=== PATIENT | male | born 1950 | race Caucasian/White ===

== ENCOUNTER 2017-01-06 18:50 | Inpatient (IN) | payer MEDICARE, BC ==
[~2017-01-06] VITALS: Ht 177.8 cm; Wt 93.6 kg
[2017-01-06] VITALS (20 sets, daily range): BP systolic 132–271; BP diastolic 68–132; PULSE 85–132; RESP 20–42; TEMP 98.4–101.2; O2SAT 72–100
[~2017-01-06 18:50] MED LIST: AMLO10 PO; ASPI81TA11 PO; ATOR1TAB18 PO; CLON.3T TD; CLOP75TA PO; DILT60TA33 PO; EMPA1TAB PO; ENOX30P SQ; GABA100C4 PO; HYDR12.57 PO; HYDR50TA15 PO; IMDU30TA PO; LIPI80TA PO; LOTR10CA2 PO; METO-309 PO; METO100T9 PO; NYSTCRE29 TOPICAL; PLAV75TA29 PO; PREV30TA3 PO; QUET1TAB7 PO; SERT-129 PO
[2017-01-06] MEDS ORDERED: SODIUM CHLORIDE 0.9% FLUSH 5 ML FLUSH IVF PRN ×2 (19:00→20:45)
[2017-01-06] MEDS ORDERED: NITROGLYCERIN-DEXTROSE INJ 250 ML IV SCH (19:00)
[2017-01-06] MEDS ORDERED: ENALAPRILAT 2.5 MG/2 ML VIAL IV PUSH ONE (19:15)
[2017-01-06] MEDS ORDERED: FUROSEMIDE 100 MG/10 ML VIAL IV PUSH ONE (19:15)
[2017-01-06 19:21] LABS: AUTOMATED NEUTROPHIL # 12.2 TH/MM3 (1.8-7.7); BASOPHIL # 0.2 TH/MM3 (0-0.2); BASOPHIL % 0.9 % (0.0-2.0); EOSINOPHIL # 0.3 TH/MM3 (0-0.4); EOSINOPHIL % 1.2 % (0.0-4.0); HEMATOCRIT 47.5 % (39.0-51.0); LYMPH % 32.4 % (9.0-44.0); MEAN CELL VOLUME 87.3 FL (80.0-100.0); MEAN CORPUSCULAR HEMOGLOBIN 28.7 PG (27.0-34.0); MEAN CORPUSCULAR HGB CONC 32.9 % (32.0-36.0); MONO % 9.4 % (0.0-8.0); NEUT % 56.1 % (16.0-70.0); PLATELET COUNT 201 TH/MM3 (150-450); RED BLOOD COUNT 5.44 MIL/MM3 (4.50-5.90); RED CELL DISTRIBUTION WIDTH 15.3 % (11.6-17.2); WHITE BLOOD COUNT 21.7 TH/MM3 (4.0-11.0)
[2017-01-06 19:24] LABS: HEMO FLAGS AUTO DIFF
--- NOTE | 2017-01-06 19:25 | RADHPO ---
EXAM DATE/TIME: 01/06/2017 19:07 [place] COMPARISON: CHEST SINGLE AP, August 28, 2016, 8:55. INDICATIONS : Short of breath. MEDICAL HISTORY : Congestive heart failure. Hypertension SURGICAL HISTORY : Cardiac bypass. ENCOUNTER: Initial ACUITY: 3 days PAIN SCORE: 1/10 LOCATION: Bilateral chest FINDINGS: There is slight cardiomegaly and perivascular pulmonary edema. Focal consolidation is not seen. There is evidence for prior median sternotomy. CONCLUSION: Slight CHF. K. Juan J Ashby MD on January 06, 2017 at 19:23 Board Certified Radiologist. This report was verified electronically.
[2017-01-06 19:31] LABS: CHLORIDE 105 MEQ/L (98-107); POTASSIUM 3.5 MEQ/L (3.5-5.1); SODIUM (NA) 141 MEQ/L (136-145)
--- NOTE | 2017-01-06 19:31 | PD ---
HPI Chief Complaint: Respiratory Distress Time Seen by Provider: 19:05 Travel History International Travel<30 days: No Contact w/Intl Traveler<30days: No Traveled to known affect area: No History of Present Illness HPI The patient is a 67-year-old male that states he has a history of congestive heart failure 5 years ago who complains of some shortness of breath last night and then beginning this afternoon sudden onset of severe shortness of breath. He does have a history of hypertension and coronary artery disease. He is on multiple medications which he states he is taking correctly. He denies any chest discomfort. He denies any cough or fever. He does smoke about a pack a day. He is a Medicare a and B patient of Dr. Marquez. [facility] Past Medical History Diminished Hearing: No Social History Alcohol Use: No Tobacco Use: No (it is unknown whether this patient has a smoking history) Substance Use: No Allergies-Medications (Allergen,Severity, Reaction): Coded Allergies: No Known Allergies (Unverified , 01/06/17) Reported Meds & Prescriptions Reported Meds & Active Scripts Active Nystatin-Triamcinolone 100,000-0.1 Unit/Gm Cream 1 Applic TOPICAL Q8HR 10 Days Quetiapine (Quetiapine Fumarate) 25 Mg Tab 12.5 Mg PO BID 30 Days Lopressor (Metoprolol Tartrate) 50 Mg Tab 100 Mg PO Q12HR 30 Days Prevacid Solutab ODT (Lansoprazole) 30 Mg Tab 30 Mg PO DAILY 30 Days Imdur (Isosorbide Mononitrate) 30 Mg Tab 30 Mg PO DAILY@07 30 Days Hydralazine (Hydralazine HCl) 50 Mg Tab 100 Mg PO Q8HR 30 Days Lovenox Inj (Enoxaparin Sodium) 30 Mg/0.3 Ml Syr 30 Mg SQ Q24H 30 Days Cardizem (Diltiazem HCl) 60 Mg Tab 60 Mg PO QID 30 Days Plavix (Clopidogrel Bisulfate) 75 Mg Tab 75 Mg PO DAILY 30 Days [id number] 168 HR Patch (Clonidine) 0.3 Mg/24 Hr Patch 1 Patch TD Q7D 30 Days Lipitor (Atorvastatin Calcium) 80 Mg Tab 80 Mg PO DAILY 30 Days Aspirin EC (Aspirin) 81 Mg Tabdr 81 Mg PO DAILY 30 Days Norvasc (Amlodipine Besylate) 10 Mg Tab 10 Mg PO DAILY 30 Days Reported Clopidogrel (Clopidogrel Bisulfate) 75 Mg Tab 75 Mg PO DAILY Metoprolol Succinate ER 24 HR (Metoprolol Succinate) 100 Mg Tab 100 Mg PO DAILY Sertraline (Sertraline HCl) 100 Mg Tab 100 Mg PO DAILY Gabapentin 100 Mg Cap 100 Mg PO TID Atorvastatin (Atorvastatin Calcium) 80 Mg Tab 80 Mg PO DAILY Lotrel (Amlodipine-Benazepril) 10-40 Mg Cap 1 Cap PO DAILY Hydrochlorothiazide 12.5 Mg Cap 25 Mg PO DAILY Jardiance (Empagliflozin) 10 Mg Tab 10 Mg PO DAILY Review of Systems Except as stated in HPI: all other systems reviewed are Neg Physical Exam Narrative GENERAL: The patient is alert, obese, oriented 3 in moderate to severe respiratory distress. Dr. Cavazos was taking care of the patient as I walked in to work, patient had just arrived. His vital signs when I saw the patient were pulse rate of 137, blood pressure 238/118 with respirations of 40. The patient had been put on BiPAP and oximetry was 98%. SKIN: Warm and dry. HEAD: Atraumatic. Normocephalic. EYES: Pupils equal and round. No scleral icterus. No injection or drainage. ENT: No nasal bleeding or discharge. Mucous membranes pink and moist. NECK: Trachea midline. No JVD. CARDIOVASCULAR: Regular rate and rhythm. No murmur appreciated. RESPIRATORY: No accessory muscle use. Extremely diminished breath sounds bilaterally. GASTROINTESTINAL: Abdomen soft, non-tender, nondistended. Hepatic and splenic margins not palpable. MUSCULOSKELETAL: No obvious deformities. No clubbing. No cyanosis. No edema. NEUROLOGICAL: Awake and alert. No obvious cranial nerve deficits. Motor grossly within normal limits. Normal speech. PSYCHIATRIC: Appropriate mood and affect; insight and judgment normal. Data Data Last Documented VS Vital Signs Date Time Temp Pulse Resp B/P Pulse Ox O2 Delivery O2 Flow Rate FiO2 01/06/17 20:48 20 99 BiPAP 50 01/06/17 20:34 101.2 94 194/87 Orders Complete Blood Count With Diff (01/06/17 18:59) Comprehensive Metabolic Panel (01/06/17 18:59) B-Type Natriuretic Peptide (01/06/17 18:59) Prothrombin Time / Inr (Pt) (01/06/17 18:59) Troponin I (01/06/17 18:59) Arterial Blood Gas (Abg) (01/06/17 18:59) Blood Culture (01/06/17 18:59) Iv Access Insert/Monitor (01/06/17 18:59) Electrocardiogram (01/06/17 18:59) Ecg Monitoring (01/06/17 18:59) Oximetry (01/06/17 18:59) Oxygen Administration (01/06/17 18:59) Chest, Single Ap (01/06/17 18:59) Sodium Chloride 0.9% Flush (Ns Flush) (01/06/17 19:00) Nitroglycerin-Dextrose Inj (Nitroglyceri (01/06/17 19:00) Enalaprilat Inj (Vasotec Inj) (01/06/17 19:15) Furosemide Inj (Lasix Inj) (01/06/17 19:15) Sodium Chloride 0.9% Flush (Ns Flush) (01/06/17 20:45) Ceftriaxone Inj (Rocephin Inj) (01/06/17 20:45) Azithromycin Inj (Zithromax Inj) (01/06/17 20:45) Admit To Inpatient (01/06/17 ) Vital Signs (Adult) Q4H (01/06/17 20:57) Activity Oob With Assistance (01/06/17 20:57) Business Mgr / Telemetry .CONTINUOUS (01/06/17 20:57) Diet Heart Healthy (01/07/17 Breakfast) Sodium Chloride 0.9% Flush (Ns Flush) (01/06/17 21:00) Sodium Chloride 0.9% Flush (Ns Flush) (01/06/17 21:00) Basic Metabolic Panel (Bmp) (01/07/17 06:00) Complete Blood Count With Diff (01/07/17 06:00) Creatine Kinase (Cpk) (01/07/17 01:00) Creatine Kinase (Cpk) (01/07/17 07:00) Troponin I (01/07/17 01:00) Troponin I (01/07/17 07:00) Electrocardiogram (01/07/17 01:00) Electrocardiogram (01/07/17 07:00) Pt Request For Service (01/06/17 20:57) Case Management Consult (01/06/17 20:57) Naloxone Inj (Narcan Inj) (01/06/17 21:00) Inpatient Certification (01/06/17 ) Furosemide Inj (Lasix Inj) (01/07/17 09:00) Potassium Chloride Eff (K-Lyte Cl Eff) (01/06/17 21:00) Complete Blood Count With Diff (01/06/17 21:01) Admit Order (Ed Use Only) (01/06/17 21:07) Lactic Acid (01/06/17 21:12) Labs Laboratory Tests Test 01/06/17 01/06/17 19:07 19:45 White Blood Count 21.7 TH/MM3 Red Blood Count 5.44 MIL/MM3 Hemoglobin 15.6 GM/DL Hematocrit 47.5 % Mean Corpuscular Volume 87.3 FL Mean Corpuscular Hemoglobin 28.7 PG Mean Corpuscular Hemoglobin 32.9 % Concent Red Cell Distribution Width 15.3 % Platelet Count 201 TH/MM3 Mean Platelet Volume 9.2 FL Neutrophils (%) (Auto) 56.1 % Lymphocytes (%) (Auto) 32.4 % Monocytes (%) (Auto) 9.4 % Eosinophils (%) (Auto) 1.2 % Basophils (%) (Auto) 0.9 % Neutrophils # (Auto) 12.2 TH/MM3 Lymphocytes # (Auto) 7.0 TH/MM3 Monocytes # (Auto) 2.0 TH/MM3 Eosinophils # (Auto) 0.3 TH/MM3 Basophils # (Auto) 0.2 TH/MM3 CBC Comment AUTO DIFF Differential Comment AUTO DIFF CONFIRMED Prothrombin Time 10.3 SEC Prothromb Time International 0.9 RATIO Ratio Sodium Level 141 MEQ/L Potassium Level 3.5 MEQ/L Chloride Level 105 MEQ/L Carbon Dioxide Level 25.9 MEQ/L Anion Gap 10 MEQ/L Blood Urea Nitrogen 26 MG/DL Creatinine 1.30 MG/DL Estimat Glomerular Filtration 55 ML/MIN Rate Random Glucose 131 MG/DL Calcium Level 8.5 MG/DL Total Bilirubin 0.3 MG/DL Aspartate Amino Transf 24 U/L (AST/SGOT) Alanine Aminotransferase 40 U/L (ALT/SGPT) Alkaline Phosphatase 119 U/L Troponin I 0.04 NG/ML B-Type Natriuretic Peptide 347 PG/ML Total Protein 8.7 GM/DL Albumin 3.6 GM/DL Blood Gas Puncture Site LT BRACHIAL Blood Gas Patient Temperature 98.6 Blood Gas HCO3 22 mmol/L Blood Gas Base Excess -2.3 mmol/L Blood Gas Oxygen Saturation 96 % Arterial Blood pH 7.38 Arterial Blood Partial 38 mmHG Pressure CO2 Arterial Blood Partial 411 mmHG Pressure O2 Arterial Blood Oxygen Content 20.3 Vol % Arterial Blood 2.8 % Carboxyhemoglobin Arterial Blood Methemoglobin 1.4 % Blood Gas Hemoglobin 14.3 G/DL Oxygen Delivery Device BIPAP Blood Gas Ventilator Setting IPAP 15/EPAP 5 Blood Gas Inspired Oxygen 100 % MDM Medical Decision Making Medical Screen Exam Complete: Yes Emergency Medical Condition: Yes Medical Record Reviewed: Yes Interpretation(s) The chest x-ray shows congestive heart failure with pulmonary edema and cardiomegaly. There is no evidence of pneumonia. EKG shows sinus tachycardia with a rate of 132 and left anterior fascicular block with suspected LVH. Differential Diagnosis Congestive heart failure, pulmonary edema, acute coronary syndrome, COPD with acute exacerbation, pneumonia, bronchitis, hypoxemia, noncompliance to medicationsunlikely, electrolyte disorder Narrative Course It is now 7:36 PM and the patient is doing much better. His blood pressure is slowly coming down, it is now 225/109. He is alert and oriented and can speak plainly. He is still on the BiPAP. His oximetry is 100%. It is now 9:10 PM and we are able to get a temperature and the patient had a fever of 101.1. His white count is 21,700. He may have a pneumonia although none is seen on x-ray. Lactic acid and blood cultures are done, the patient appears to have sepsis. Critical Care Narrative Aggregate critical care time was [-55] minutes. Time to perform other separately billable procedures was not included in the critical care time. My time did not include minutes spent treating any other patients simultaneously or on activities that did not directly contribute to the patient's treatment. The patient required multiple and frequent reevaluation is to monitor his respiratory distress. The services I provided to this patient were to treat and/or prevent clinically significant deterioration that could result in: Respiratory failure/ I provided critical care services requiring my management, as noted below: Chart data review, documentation time, medication orders and management, vital sign assessments/reviewing monitor data, ordering and reviewing lab tests, ordering and interpreting/reviewing x-rays and diagnostic studies, care of the patient and discussion of the patient with the admitting physicians. Physician Communication Physician Communication I discussed the patient with Dr. Bhatti. Diagnosis Primary Impression: Pulmonary edema with congestive heart failure Additional Impression: Sepsis Enrique Bahena MD Jan 06, 2017 19:31
[2017-01-06 19:34] LABS: INTERNATIONAL NORMALIZED RATIO 0.9 RATIO; PROTHROMBIN TIME - PATIENT 10.3 SEC (9.8-11.6)
[2017-01-06 19:35] LABS: ANION GAP 10 MEQ/L (5-15); BICARBONATE 25.9 MEQ/L (21.0-32.0); BLOOD UREA NITROGEN 26 MG/DL (7-18)
[2017-01-06 19:38] LABS: ALT (GPT) 40 U/L (12-78); AST (GOT) 24 U/L (15-37); GLOMERULAR FILTRATION RATE 55 ML/MIN (>89)
[2017-01-06 19:39] LABS: TOTAL BILIRUBIN ADULT 0.3 MG/DL (0.2-1.0)
[2017-01-06 19:41] LABS: ALKALINE PHOSPHATASE 119 U/L (45-117)
[2017-01-06 19:45] LABS: SCAN/DIFF AUTO DIFF CONFIRMED
[2017-01-06 19:57] LABS: BLOOD GAS BASE EXCESS -2.3 mmol/L (-2-2); BLOOD GAS CARBOXYHEMOGLOBIN 2.8 % (0-4); BLOOD GAS HCO3 22 mmol/L (22-26); BLOOD GAS METHEMOGLOBIN 1.4 % (0-2); BLOOD GAS O2 HGB SATURATION 96 % (90-100); BLOOD GAS OXYGEN CONTENT 20.3 Vol % (12.0-20.0); BLOOD GAS PCO2 38 mmHG (38-42); BLOOD GAS PO2 411 mmHG (61-120); BLOOD GAS TOTAL HGB 14.3 G/DL (12.0-16.0); CRITICAL VALUE NO; DRAW SITE LT BRACHIAL; FIO2 100 %; NUMBER OF ARTERIAL PUNCTURES 2; OXYGEN DEVICE BIPAP; STAT YES; TEMP CORR TO 98.6; VENT SETTINGS IPAP 15/EPAP 5
[2017-01-06] MEDS ORDERED: AZITHROMYCIN INJ 500 MG in SODIUM CHLOR 0.9% 250 ML INJ 250 ML IV ONE (20:45)
[2017-01-06] MEDS ORDERED: cefTRIAXone INJ 1,000 MG in SODIUM CHLORIDE 0.9% INJ 100 ML IV ONE (20:45)
[2017-01-06] MEDS ORDERED: SODIUM CHLORIDE 0.9% FLUSH 5 ML FLUSH FLUSH PRN (21:00)
[2017-01-06] MEDS: SODIUM CHLORIDE 0.9% FLUSH 5 ML FLUSH FLUSH SCH (21:00)
[2017-01-06] MEDS ORDERED: NALOXONE HCL 0.4 MG/ML AMP IV PRN (21:00)
[2017-01-06] MEDS ORDERED: POTASSIUM CHLORIDE 25 MEQ EFFERVESCENT TAB PO ONE (21:00)
[2017-01-06] MEDS ORDERED: METO25TA6 PO (21:22)
[2017-01-06] MEDS ORDERED: ACETAMINOPHEN 325 MG TAB PO ONE (21:30)
[2017-01-06] MEDS ORDERED: ISOS30TA3 PO (22:44)
[2017-01-06] MEDS ORDERED: TRAZ50TA12 PO (22:44)
[2017-01-06] MEDS ORDERED: LEVEMIR SQ (22:44)
[2017-01-06] MEDS ORDERED: GLIP10TA6 PO (22:44)
[2017-01-06] MEDS ORDERED: NOVOINJ3 SQ (22:51)
[2017-01-07] VITALS (39 sets, daily range): BP systolic 139–200; BP diastolic 55–95; PULSE 72–95; RESP 11–36; TEMP 97.4–98.4; O2SAT 92–99
[2017-01-07 00:44] LABS: AUTOMATED NEUTROPHIL # 8.1 TH/MM3 (1.8-7.7); BASOPHIL # 0.3 TH/MM3 (0-0.2); BASOPHIL % 2.9 % (0.0-2.0); EOSINOPHIL % 0.1 % (0.0-4.0); HEMATOCRIT 38.1 % (39.0-51.0); LYMPH % 14.7 % (9.0-44.0); LYMPHOCYTE # 1.6 TH/MM3 (1.0-4.8); MEAN CELL VOLUME 86.8 FL (80.0-100.0); MEAN CORPUSCULAR HEMOGLOBIN 28.7 PG (27.0-34.0); MONO % 9.2 % (0.0-8.0); NEUT % 73.1 % (16.0-70.0); PLATELET COUNT 158 TH/MM3 (150-450); RED BLOOD COUNT 4.38 MIL/MM3 (4.50-5.90); RED CELL DISTRIBUTION WIDTH 15.3 % (11.6-17.2)
[2017-01-07 00:50] LABS: HEMO FLAGS DIFF FINAL
[2017-01-07 05:39] LABS: BASOPHIL % 0.3 % (0.0-2.0); EOSINOPHIL % 0.5 % (0.0-4.0); HEMO FLAGS DIFF FINAL; LYMPH % 17.4 % (9.0-44.0); LYMPHOCYTE # 1.5 TH/MM3 (1.0-4.8); MEAN CELL VOLUME 86.4 FL (80.0-100.0); MEAN CORPUSCULAR HEMOGLOBIN 29.5 PG (27.0-34.0); MEAN CORPUSCULAR HGB CONC 34.2 % (32.0-36.0); MONO % 11.3 % (0.0-8.0); NEUT % 70.5 % (16.0-70.0); PLATELET COUNT 142 TH/MM3 (150-450); RED CELL DISTRIBUTION WIDTH 14.7 % (11.6-17.2); WHITE BLOOD COUNT 8.5 TH/MM3 (4.0-11.0)
[2017-01-07 05:49] LABS: POTASSIUM 3.8 MEQ/L (3.5-5.1)
[2017-01-07 05:56] LABS: BICARBONATE 25.4 MEQ/L (21.0-32.0)
[2017-01-07] MEDS ORDERED: GLUCAGON 1 MG/ML VIAL OTHER PRN (08:15)
[2017-01-07] MEDS ORDERED: ENALAPRILAT 1.25 MG/ML VIAL IV PUSH PRN (08:15)
[2017-01-07] MEDS ORDERED: DEXTROSE 50% IN WATER 50 ML VIAL(D50) IV PUSH PRN (08:15)
[2017-01-07] MEDS ORDERED: METOPROLOL SUCCINATE 25 MG EXTENDED RELEASE TAB PO PRN (08:30)
[2017-01-07] MEDS ORDERED: PILL SPLITTER OTHER PRN (08:30)
[2017-01-07] MEDS: SERTRALINE HCL 100 MG TAB PO SCH (09:00)
[2017-01-07] MEDS: ASPIRIN EC 81 MG TABEC PO SCH (09:00)
[2017-01-07] MEDS: SODIUM CHLORIDE 0.9% FLUSH 5 ML FLUSH FLUSH SCH ×2 (09:10→20:10)
[2017-01-07] MEDS: FUROSEMIDE 40 MG/4 ML VIAL IV PUSH SCH ×2 (09:11→18:33)
[2017-01-07] MEDS: ISOSORBIDE MONONITRATE 30 MG TAB PO SCH (09:11)
[2017-01-07] MEDS: METOPROLOL SUCCINATE 25 MG EXTENDED RELEASE TAB PO SCH ×2 (09:11→20:09)
[2017-01-07] MEDS: glipiZIDE 10 MG TAB PO SCH (09:12)
[2017-01-07] MEDS: CLOPIDOGREL 75 MG TAB PO SCH (09:12)
[2017-01-07] MEDS: LISINOPRIL 5 MG TAB PO SCH (09:13)
[2017-01-07] MEDS: PANTOPRAZOLE SOD 40 MG DELAYED RELEASE TAB PO SCH (09:13)
[2017-01-07] MEDS: GABAPENTIN 100 MG CAP PO SCH ×3 (09:14→18:33)
[2017-01-07] MEDS: ATORVASTATIN 40 MG TAB PO SCH (09:18)
--- NOTE | 2017-01-07 10:02 | HHI.HP ---
cc: Sukumar Marquez MD [facility] Primary Care Physician Unknown Admission Diagnosis CHF with pulmonary edema, sepsis Diagnoses: (1) Systemic inflammatory response syndrome Diagnosis: Principal (2) Febrile illness Diagnosis: Principal (3) Leukocytosis Diagnosis: Principal (4) Acute pulmonary edema Diagnosis: Principal (5) Shortness of breath Diagnosis: Principal (6) Elevated troponin Diagnosis: Principal (7) Accelerated hypertension Diagnosis: Principal (8) Coronary artery disease Diagnosis: Principal (9) Diabetes Diagnosis: Secondary Chief Complaint: Shortness of breath and dyspnea. Travel History International Travel<30 Days: No Contact w/Intl Traveler <30 Da: No Traveled to Known Affected Are: No History of Present Illness 67-year-old male with known history of hypertension, hyperlipidemia, coronary artery disease, history of coronary bypass surgery 4 vessel, diabetes, chronic obstructive pulmonary disease, chronic tobacco use, history of respiratory failure secondary to bilateral pneumonia who presented to hospital because of shortness of breath and dyspnea. Patient states that his normal state of health until approximately 2 days ago. At that time the patient states that he started developing difficulty breathing, shortness of breath. Patient did have episode 2 days ago which he lay down and when he woke up it was resolved. Last night he developed shortness of breath and dyspnea with associated diaphoresis. He tried to lay down however he could not lay flat. He had to sit up. He drove himself to the hospital for evaluation. Patient denies any chest pain, nausea, vomiting, dizziness. Patient presented to the emergency department found to have hypertensive emergency with blood pressure 271/132, patient had severe shortness of breath in which she was indicated that the ER staff was planning on intubating the patient. Patient put on BiPAP for his shortness of breath with improvement. Patient was given Lasix, Vasotec, started on nitroglycerin drip for his blood pressure with improvement. Workup did indicate leukocytosis, tachycardia which have resolved. No infectious source was found. Chest x-ray did show some slight congestive heart failure. Patient does not have previous history of congestive heart failure. Previous echocardiogram done 08/19/2016 does show ejection fraction 50-55% with small area of apical akinesis. However systolic function was normal. Patient was admitted to the ICU for continued management. On time evaluating the patient he is feeling much better. He denies any fever, chills, cough, congestion, nausea, vomiting, lower extremity edema. Review of Systems Constitutional: COMPLAINS OF: Diaphoretic episodes, DENIES: Fatigue, Fever, Weight gain, Weight loss, Chills, Dizziness, Change in appetite, Night Sweats Eyes: DENIES: Blurred vision, Diplopia, Eye inflammation, Eye pain, Vision loss , Double Vision Ears, nose, mouth, throat: DENIES: Vertigo, Nasal discharge, Throat pain, Ear Pain, Running Nose, Sinus Pain Respiratory: COMPLAINS OF: Shortness of breath, DENIES: Apneas, Cough, Snoring , Wheezing, Hemoptysis, Sputum production Cardiovascular: COMPLAINS OF: Orthopnea, DENIES: Chest pain, Palpitations, Syncope, Dyspnea on Exertion, Lower Extremity Edema Gastrointestinal: DENIES: Abdominal pain, Black stools, Bloody stools, Constipation, Diarrhea, Nausea, Vomiting, Difficulty Swallowing, Anorexia Neurologic: DENIES: Abnormal gait, Headache, Localized weakness, Paresthesias, Seizures, Speech Problems, Tremor, Poor Balance Psychiatric: DENIES: Anxiety, Confusion, Mood changes, Depression Past Family Social History Past Medical History Hypertension Hyperlipidemia Diabetes Coronary artery disease status post coronary bypass surgery Chronic affective coronary disease History myocardial infarction Chronic tobacco use Past Surgical History Left carotid endarterectomy Coronary bypass surgery four-vessel, 5 years ago in [facility] Reported Medications Reported Meds & Active Scripts Active Quetiapine (Quetiapine Fumarate) 25 Mg Tab 12.5 Mg PO BID 30 Days Prevacid Solutab ODT (Lansoprazole) 30 Mg Tab 30 Mg PO DAILY 30 Days Imdur (Isosorbide Mononitrate) 30 Mg Tab 30 Mg PO DAILY@07 30 Days Hydralazine (Hydralazine HCl) 50 Mg Tab 100 Mg PO Q8HR 30 Days Aspirin EC (Aspirin) 81 Mg Tabdr 81 Mg PO DAILY 30 Days Norvasc (Amlodipine Besylate) 10 Mg Tab 10 Mg PO DAILY 30 Days Reported Novolog Flexpen Inj (Insulin Aspart) 300 Unit/3 Ml Pen 1 Units SQ Levemir Inj (Insulin Detemir) 1,000 unit/ 10 ML Vial 10 Units SQ HS Do not mix with any other Insulin. Trazodone (Trazodone HCl) 50 Mg Tab 50 Mg PO HS Glipizide 10 Mg Tab 10 Mg PO DAILY Take 30 minutes before a meal Isosorbide Mononitrate ER (Isosorbide Mononitrate) 30 Mg Hammad 30 Mg PO DAILY Metoprolol Succinate ER 24 HR (Metoprolol Succinate) 25 Mg Tab 25 Mg PO BID PRN Clopidogrel (Clopidogrel Bisulfate) 75 Mg Tab 75 Mg PO DAILY Sertraline (Sertraline HCl) 100 Mg Tab 100 Mg PO DAILY Gabapentin 100 Mg Cap 100 Mg PO TID Atorvastatin (Atorvastatin Calcium) 80 Mg Tab 80 Mg PO DAILY Allergies: Coded Allergies: No Known Allergies (Unverified , 01/06/17) Family History Reviewed is significant for father having heart attack in his early 60s, stroke , diabetes. 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 Mother says the family lived to old age. Social History Patient smokes 1 pack a cigarettes a day since he was 19 years old. Denies any alcohol or illicit drugs Physical Exam Vital Signs Vital Signs Date Time Temp Pulse Resp B/P Pulse Ox O2 Delivery O2 Flow Rate FiO2 01/07/17 07:00 Nasal Cannula 2.00 01/07/17 04:00 97.4 84 26 141/72 95 01/07/17 03:30 Nasal Cannula 2.00 01/07/17 03:00 78 21 163/78 96 01/07/17 02:33 78 15 166/79 96 01/07/17 02:32 78 22 170/73 98 01/07/17 02:30 76 11 161/77 97 01/07/17 02:20 99 Nasal Cannula 4.00 01/07/17 02:00 80 23 140/69 96 01/07/17 01:30 82 12 147/62 95 01/07/17 01:00 84 27 142/61 96 01/07/17 00:30 84 27 139/69 96 01/07/17 00:00 98.4 85 20 139/69 95 01/07/17 00:00 84 26 141/72 95 01/06/17 23:40 95 Nasal Cannula 4.00 01/06/17 23:39 98.4 85 22 143/68 95 01/06/17 23:39 90 01/06/17 23:39 Nasal Cannula 4.00 01/06/17 23:10 99.8 85 20 132/69 98 Nasal Cannula 4 01/06/17 22:32 91 24 144/71 95 Nasal Cannula 4 01/06/17 22:30 82 20 96 Nasal Cannula 4 01/06/17 22:16 96 20 167/80 95 BiPAP 40 01/06/17 22:01 92 20 166/71 100 BiPAP 40 01/06/17 22:00 100 40 01/06/17 21:46 90 20 183/80 100 BiPAP 40 01/06/17 21:31 90 20 184/80 100 BiPAP 50 01/06/17 21:16 92 20 191/88 99 BiPAP 50 01/06/17 21:01 93 20 181/90 100 BiPAP 50 01/06/17 20:48 20 99 BiPAP 50 01/06/17 20:46 113 20 186/90 99 BiPAP 50 01/06/17 20:34 101.2 94 20 194/87 99 BiPAP 50 01/06/17 20:27 BiPAP 50 01/06/17 20:16 94 20 179/78 99 01/06/17 20:01 96 20 178/79 100 BiPAP 50 01/06/17 20:00 100 50 01/06/17 19:31 104 20 225/109 100 BiPAP 01/06/17 19:17 114 20 238/118 100 BiPAP 01/06/17 19:01 130 40 271/132 72 01/06/17 19:00 BiPAP 100 01/06/17 19:00 100 100 01/06/17 19:00 132 42 240/ 72 Physical Exam GENERAL: Well-developed, well-nourished, in no acute distress. alert and orientated HEENT: Head is normocephalic without any lesions or masses noted. Facial features are symmetric. Eyes: Pupils equal round reactive to light. Extraocular muscles are intact. Conjunctivae were clear. Oropharyngeal: Pharynx without any erythema edema. Tongue is midline without deviation. Buccal mucosa is moist without any masses or lesions NECK: Supple without any masses. Trachea midline no deviation. No JVD, no bruits are appreciated CARDIAC: Regular rhythm, regular rate. S1/S2 are heard. No murmurs gallops or rubs. LUNGS: Clear to auscultation bilaterally. No wheeze, rhonchi or rales. No use of accessory muscles on inspiration or expiration. ABDOMEN: Soft, nontender. Nondistended. Bowel sounds heard in all 4 quadrants. No organomegaly or masses. Negative rebound, negative guarding EXTREMITIES: No edema, pulses are equal bilaterally. No cyanosis or clubbing NEUROLOGY: Mood and affect appear appropriate. Cranial nerves II through XII grossly intact. Muscle strength 5/5 in upper and lower extremities bilaterally. Deep tendon reflexes are 2+ in upper and lower extremities bilaterally. Laboratory Laboratory Tests Test 01/06/17 01/06/17 01/06/17 01/07/17 19:07 19:45 21:18 00:30 White Blood Count 21.7 11.0 Red Blood Count 5.44 4.38 Hemoglobin 15.6 12.6 Hematocrit 47.5 38.1 Mean Corpuscular Volume 87.3 86.8 Mean Corpuscular Hemoglobin 28.7 28.7 Mean Corpuscular Hemoglobin 32.9 33.0 Concent Red Cell Distribution Width 15.3 15.3 Platelet Count 201 158 Mean Platelet Volume 9.2 8.6 Neutrophils (%) (Auto) 56.1 73.1 Lymphocytes (%) (Auto) 32.4 14.7 Monocytes (%) (Auto) 9.4 9.2 Eosinophils (%) (Auto) 1.2 0.1 Basophils (%) (Auto) 0.9 2.9 Neutrophils # (Auto) 12.2 8.1 Lymphocytes # (Auto) 7.0 1.6 Monocytes # (Auto) 2.0 1.0 Eosinophils # (Auto) 0.3 0.0 Basophils # (Auto) 0.2 0.3 CBC Comment AUTO DIFF DIFF FINAL Differential Comment AUTO DIFF CONFIRMED Prothrombin Time 10.3 Prothromb Time International 0.9 Ratio Sodium Level 141 Potassium Level 3.5 Chloride Level 105 Carbon Dioxide Level 25.9 Anion Gap 10 Blood Urea Nitrogen 26 Creatinine 1.30 Estimat Glomerular Filtration 55 Rate Random Glucose 131 Calcium Level 8.5 Total Bilirubin 0.3 Aspartate Amino Transf 24 (AST/SGOT) Alanine Aminotransferase 40 (ALT/SGPT) Alkaline Phosphatase 119 Troponin I 0.04 0.12 B-Type Natriuretic Peptide 347 Total Protein 8.7 Albumin 3.6 Blood Gas Puncture Site LT BRACHIAL Blood Gas Patient Temperature 98.6 Blood Gas HCO3 22 Blood Gas Base Excess -2.3 Blood Gas Oxygen Saturation 96 Arterial Blood pH 7.38 Arterial Blood Partial 38 Pressure CO2 Arterial Blood Partial 411 Pressure O2 Arterial Blood Oxygen Content 20.3 Arterial Blood 2.8 Carboxyhemoglobin Arterial Blood Methemoglobin 1.4 Blood Gas Hemoglobin 14.3 Oxygen Delivery Device BIPAP Blood Gas Ventilator Setting IPAP 15/EPAP 5 Blood Gas Inspired Oxygen 100 Lactic Acid Level 1.1 Total Creatine Kinase 63 Test 01/07/17 01/07/17 04:30 07:50 White Blood Count 8.5 Red Blood Count 4.40 Hemoglobin 13.0 Hematocrit 38.0 Mean Corpuscular Volume 86.4 Mean Corpuscular Hemoglobin 29.5 Mean Corpuscular Hemoglobin 34.2 Concent Red Cell Distribution Width 14.7 Platelet Count 142 Mean Platelet Volume 8.9 Neutrophils (%) (Auto) 70.5 Lymphocytes (%) (Auto) 17.4 Monocytes (%) (Auto) 11.3 Eosinophils (%) (Auto) 0.5 Basophils (%) (Auto) 0.3 Neutrophils # (Auto) 6.0 Lymphocytes # (Auto) 1.5 Monocytes # (Auto) 1.0 Eosinophils # (Auto) 0.0 Basophils # (Auto) 0.0 CBC Comment DIFF FINAL Differential Comment Sodium Level 142 Potassium Level 3.8 Chloride Level 108 Carbon Dioxide Level 25.4 Anion Gap 9 Blood Urea Nitrogen 27 Creatinine 1.20 Estimat Glomerular Filtration 61 Rate Random Glucose 203 Calcium Level 8.2 Total Creatine Kinase 70 Troponin I 0.09 Date/Time Procedure Status Source Growth 01/07/17 06:12 Influenza Types A,B Antigen (PRITI) - Final Complete Nasal Aspirate NEGATIVE FOR FLU A AND B ANTIGEN.... 01/06/17 19:07 Aerobic Blood Culture Received Blood Peripheral Pending 01/06/17 19:07 Anaerobic Blood Culture Received Blood Peripheral Pending Result Diagram: 01/07/17 0430 01/07/17 0430 Imaging Last Impressions Chest X-Ray 01/06/17 1844 Signed Impressions: Service Date/Time: January 19:07 - CONCLUSION: Slight CHF. K. Juan J Ashby MD Assessment and Plan Assessment and Plan Systemic inflammatory response syndrome: Resolved. Patient met criteria on presentation with a fever 101.2, leukocytosis. No infectious source was noted. Patient now afebrile, leukocytosis has resolved. Influenza testing was negative, blood cultures are pending, chest x-ray does not indicate any infectious process Acute pulmonary edema in the presence of hypertension emergency: Likely secondary to uncontrolled hypertension. Previous echocardiogram in August indicates good ejection fraction with normal systolic function. Chest x-ray she does show some slight pulmonary edema, BMP 347, patient has no peripheral edema. No crackles noted on examination. We'll repeat echocardiogram to evaluate cardiac function. Continue diuresis. Continue input and output. Patient on beta lamont and MEEK inhibitor. Consulted cardiology for further recommendations Hypertensive emergency: resolved, status post Vasotec, nitroglycerin drip. Home medications have been continued Elevated troponin: Equivocal troponin elevation in the presence of hypertensive emergency, pulmonary edema. No change in EKGs. Troponins are trending downward at this time. Patient is on aspirin, metoprolol, Imdur, Norvasc, lisinopril, statin. Consult cardiology. I Dr. Mendosa discussed the patient with Dr. Mckay. Hyperlipidemia, coronary artery disease: Home medications have been resumed Diabetes: Oral hypoglycemics have been continued, Accu-Cheks with sliding scale insulin DVT prevention: Sequential compression devices Written by Boubacar Bahena PA-C, acting as scribe for Dr. Mendosa on 01/07/17 at 1140. The documentation accurately reflects the work and decisions performed face-to- face by Dr. Mendosa on 01/07/17 at 1140. Physician Certification 2 Midnight Certification Type: Admission for Inpatient Services Order for Inpatient Services The services are ordered in accordance with Medicare regulations or non- Medicare payer requirements, as applicable. In the case of services not specified as inpatient-only, they are appropriately provided as inpatient services in accordance with the 2-midnight benchmark. Estimated LOS (days): 3 days is the estimated time the patient will need to remain in the hospital, assuming treatment plan goals are met and no additional complications. Post-Hospital Plan: Home Health Problem Qualifiers (1) Leukocytosis: Qualified Code: D72.829 - Leukocytosis, unspecified type (2) Coronary artery disease: Qualified Code: I25.810 - Coronary artery disease involving other coronary artery bypass graft, angina presence unspecified (3) Diabetes: Qualified Code: E13.8 - Other specified diabetes mellitus with complication, with long-term current use of insulin Boubacar Bahena Jan 07, 2017 10:02 Lulu Mendosa MD Jan 07, 2017 12:59
[2017-01-07] MEDS: INSULIN ASPART SUPPLEMENTAL SCALE SQ SCH ×3 (11:00→20:10)
--- NOTE | 2017-01-07 12:16 | EC ---
Study Study Date:01/07/2017 STUDY CONCLUSIONS SUMMARY - Left ventricle: The cavity size was normal. Wall thickness was increased in a pattern of mild LVH. Systolic function was moderately to severely reduced. The estimated ejection fraction was in the range of 30% to 35%. - Aortic valve: Valve area: 3.61cm^2(VTI). Valve area: 3.56cm^2 (Vmax). - Mitral valve: Mild regurgitation. - Tricuspid valve: Mild-moderate regurgitation. - Pulmonary arteries: PA peak pressure: 50mm Hg (S). If LV function is below 40, please consider prescribing an ACEI or ARB or document rationale for non-use. PROCEDURE DATA STUDY STATUS: Elective. Procedure: Transthoracic echocardiography. Image quality was good. Scanning was performed from the parasternal, apical, and subcostal acoustic windows. Study completion: The patient tolerated the procedure well. Transthoracic echocardiography. M-mode, complete 2D, complete spectral Doppler, and color Doppler. Height: Height: 70in. Weight: Weight: 204.6lb. Body mass index: BMI: 29.4kg/m^2. Body surface area: BSA: 2.11m^2. Patient status: Inpatient. CARDIAC ANATOMY LEFT VENTRICLE: There is isabell septal hypokinesis. The cavity size was normal. Wall thickness was increased in a pattern of mild LVH. Systolic function was moderately to severely reduced. The estimated ejection fraction was in the range of 30% to 35%. AORTIC VALVE: Trileaflet; normal thickness leaflets. Doppler: Transvalvular velocity was within the normal range. There was no stenosis. No regurgitation. Valve area: 3.61cm^2(VTI). Indexed valve area: 1.71cm^2/m^2 (VTI). Valve area: 3.56cm^2 (Vmax). Indexed valve area: 1.69cm^2/m^2 (Vmax). Mean gradient: 3mm Hg (S). AORTA: Aortic root: The aortic root was normal in size. MITRAL VALVE: Structurally normal valve. Doppler: Transvalvular velocity was within the normal range. There was no evidence for stenosis. Mild regurgitation. Peak gradient: 7mm Hg (D). LEFT ATRIUM: The atrium was normal in size. RIGHT VENTRICLE: The cavity size was normal. Wall thickness was normal. PULMONIC VALVE: Doppler: Transvalvular velocity was within the normal range. There was no evidence for stenosis. No regurgitation. TRICUSPID VALVE: Structurally normal valve. Doppler: Transvalvular velocity was within the normal range. Mild-moderate regurgitation. PULMONARY ARTERY: The main pulmonary artery was normal-sized. Systolic pressure was within the normal range. RIGHT ATRIUM: The atrium was normal in size. PERICARDIUM: There was no pericardial effusion. SYSTEMIC VEINS: Inferior vena cava: The vessel was normal in size. Patient weight: 204.6lb _Ejection fraction:_ 65-75% _Fractional shortening:_ 32% up to 5Kg 5-11.5Kg 11.6-22.9Kg 23-45Kg 45-57Kg Aortic Root 7-13 <17 13-22 17-27 17-27 LA diam 6-13 <23 24-38 33-47 37-40 RVID 10-17 7-15 7-15 7-18 8-17 LVIDd 12-22 <32 24-38 33-47 37-40 LVPW 2-4 3-6 5-7 6-8 7-8 IVS 2-4 3-6 5-7 6-8 7-8 BASIC MEASUREMENTS ADULT NORMAL Left ventricle LV internal dimension, ED, chordal *52.7 mm 43-52 level, PLAX LV internal dimension, ES, chordal *47.1 mm 23-38 level, PLAX Fractional shortening, chordal level, *11 % >29 PLAX LV posterior wall thickness, ED 11.9 mm IVS/LVPW ratio, ED 1.07 <1.3 Ventricular septum Septal thickness, ED 12.7 mm Aortic valve Leaflet separation 19 mm 15-26 Aorta Root diameter, ED 34 mm Left atrium Anterior-posterior dimension 46 mm Anterior-posterior dimension index 2.18 cm/m^2 <2.2 BASIC MEASUREMENTS ADULT NORMAL Aortic valve Leaflet separation 19 mm 15-26 DOPPLER MEASUREMENTS ADULT NORMAL Main pulmonary artery Pressure, S *50 mm Hg =30 Aortic valve Peak velocity, S 109 cm/s Mean velocity, S 76 cm/s VTI, S 21.6 cm Mean gradient, S 3 mm Hg Valve area, VTI 3.61 cm^2 Valve area index, VTI 1.71 cm^2/m^2 Valve area, Vmax 3.56 cm^2 Valve area index, Vmax 1.69 cm^2/m^2 Mitral valve Peak E-wave velocity 133 cm/s Peak A-wave velocity 97.6 cm/s Deceleration time 173 ms 150-230 Peak gradient, D 7 mm Hg Peak E/A ratio 1.4 Tricuspid valve Regurgitant peak velocity 324 cm/s Peak RV-RA gradient, S 42 mm Hg Maximal regurgitant velocity 324 cm/s Systemic veins Estimated CVP 10 mm Hg Right ventricle RV pressure, S *52 mm Hg <30 Pulmonic valve Peak velocity, S 70.7 cm/s LEGEND: Mean values are shown as u=mean value. Asterisk (*) iyer values outside specified normal range. Prepared and signed by Pretty Limon [id number]
--- NOTE | 2017-01-07 13:00 | MB ---
cc: JASMYNE RAND DATE OF CONSULTATION: 01/07/2017 DATE OF : 1950 REASON FOR CONSULTATION Hypertensive urgency/elevated troponins. HISTORY OF PRESENT ILLNESS 67-year-old male with past medical history significant for hypertension, hyperlipidemia, coronary artery disease status post coronary bypass surgery x4 five years ago, diabetes, chronic smoker, that presented to the hospital with complaints of shortness of breath and dyspnea. The patient reports he was in his usual state of health until two days ago when he had repeated bouts of worsening exertional shortness of breath associated with diaphoresis and paroxysmal nocturnal dyspnea. The shortness of breath progressed to the point that he drove himself to the emergency department for evaluation. In the emergency department he was found to have a blood pressure of 271/132 with shortness of breath and respiratory accessory muscle use. He was started on BiPAP, IV Lasix, nitroglycerin drip and Vasotec with improvement of blood pressure as well as shortness of breath. Blood work revealed mildly elevated troponins in the range of 0.04, 0.12, 0.09. Thus cardiology has been consulted for further management and evaluation. Of note, the patient was admitted to the hospital back in August for right lower lobe pneumonia, sepsis and acute renal failure. At that time an echocardiogram revealed normal systolic function with an estimated ejection fraction of 50% and a small area of akinesis in the apex. The patient was treated medically due to kidney function and ongoing infection. He was supposed to follow-up with me after that admission, however, he never followed up in the office. Currently he reports feeling better. He denies shortness of breath, chest pain, palpitations , syncope, lightheadedness, fever, abdominal pain, diarrhea, nausea, vomiting. REVIEW OF SYSTEMS Negative except for what is mentioned in the HPI. PAST MEDICAL HISTORY 1. Hypertension. 2. Hyperlipidemia. 3. Diabetes. 4. Coronary artery disease status post coronary bypass surgery. 5. Myocardial infarction. 6. Chronic tobacco abuse. PAST SURGICAL HISTORY 1. Left carotid endarterectomy. 2. Coronary bypass surgery of four vessels five years ago at [facility] in [place]. MEDICATIONS Cardiac home medications: 1. Norvasc 10 mg p.o. daily. 2. Aspirin 81 mg p.o. daily. 3. Lipitor 80 mg p.o. daily. 4. Plavix 75 mg p.o. daily. 5. Hydralazine 50 mg p.o. q.8h. 6. Imdur 30 mg p.o. daily. 7. Metoprolol 25 mg p.o. b.i.d. p.r.n. Of note, he reports being compliant with all cardiac medications. He is also taking insulin subcutaneously as well glipizide. SOCIAL HISTORY He is an active smoker. ALLERGIES No known drug allergies. PHYSICAL EXAMINATION VITAL SIGNS: Temperature 97.4, respiratory rate 16, pulse 80, BP on admission 271/132, now 170/80. O2 sats 98% on 2 L nasal cannula. GENERAL: He is awake, alert, oriented x3, in no acute distress. NECK: No JVD. No carotid bruits. HEART: Regular rate and rhythm. No murmurs, rubs or gallops appreciated. LUNGS: There is bilateral inspiratory wheezing. No crackles or rales. ABDOMEN: Soft, nontender, nondistended. Positive bowel sounds. EXTREMITIES: No cyanosis. No edema. Pulses throughout. LABORATORY DATA CBC: White count 8.5 trending down from 21, hemoglobin 13, hematocrit 38, platelet count 142. INR 0.9. Chemistries: Sodium 142, potassium 3.8, bicarb 108, BUN 27, creatinine 1.2. Troponin 0.04, 0.12, and 0.09. BNP 347 Triglycerides 135, cholesterol 178, LDL 108, HDL 43. Blood cultures taken show no growth to date. IMAGING DATA Chest x-ray: Slight pulmonary congestion. 2Dechocardiogram: LV systolic dysfunction with estimated EF 30-35% EKG: Sinus rhythm with T wave inversions laterally ASSESSMENT 67-year-old male with known coronary artery disease, hypertension, hyperlipidemia and diabetes, presenting with acute systolic heart failure exacerbation. His LV systolic function has dropped from 60% from echocardiogram done last year to 35%. The troponin is mildly elevated which can be explained from the hypertensive urgency, tachycardia. However, given the patient's long history of CAD and new LV systolic functions I think it is reasonable that the patient undergo an ischemic workup to further assess CAD progression. Given patient renal function is better from last admission I would recommend to do a left heart catheterization +/- PCI. Please arrange transfer [facility] for angiography when he is more stable from HF standpoint. RECOMMENDATIONS 1. Continue Norvasc, Aspirin, Lipitor, Plavix, Metoprolol and Imdur. 2. Continue IV diuresis with Lasix 3. Strict I&O, daily weight and low salt diet 4. Start an MEEK inhibitor and increase as tolerated by blood pressure. Follow renal function. 5. Transfer to [facility] for [facility] +/- PCI next week. 6. Smoking cessation management and counseling. 7. LifeVest upon discharge Thank you for the opportunity to take part in the care of this patient. Further therapy to be determined. MD SALLY Grissom/BT /12:01 PM /12:29 PM MTDD
[2017-01-07] MEDS: NICOTINE 21 MG/24 HR PATCH TD SCH (14:14)
[2017-01-07] MEDS: hydrALAZINE HCL 50 MG TAB PO SCH ×2 (14:15→20:09)
[2017-01-07] MEDS ORDERED: hydrALAZINE HCL 20 MG/ML VIAL IV PUSH PRN (17:00)
[2017-01-07] MEDS: cloNIDine HCL 0.1 MG TAB PO PRN (18:42)
[2017-01-07] MEDS: REMOVE OLD NICODERM (NICOTINE) PATCH TD SCH (20:09)
[2017-01-07] MEDS: traZODone HCL 50 MG TAB PO SCH (20:09)
--- NOTE | 2017-01-07 22:53 | EKG ---
Date Performed: 01/07/2017 Time Performed: 07:56:06 PTAGE: 67 years EKG: Sinus rhythm . Left axis deviation IV conduction defect Lateral ST-T changes are probably due to ventricular hyper trophy Abnormal ECG PREVIOUS TRACING : 01/06/2017 18.54 DOCTOR: Dilma Patricio Interpretating Date/Time 01/07/2017 22:52:10
--- NOTE | 2017-01-07 23:10 | EKG ---
Date Performed: 01/07/2017 Time Performed: 01:08:40 PTAGE: 67 years EKG: Sinus rhythm Left anterior fascicular block QRS changes V3/V4 may be due to LVH but cannot rule out anterior infa rct Left ventricular hypertrophy Lateral ST-T changes may be due to hypertrophy and/or ischemia Abnor mal ECG PREVIOUS TRACING : 01/06/2017 18.54 DOCTOR: Dilma Patricio Interpretating Date/Time 01/07/2017 23:09:26
--- NOTE | 2017-01-07 23:20 | EKG ---
Date Performed: 01/06/2017 Time Performed: 18:54:00 PTAGE: 67 years EKG: Sinus tachycardia with sinus arrhythmia. Left anterior fascicular block Poor R wave progres shadi - cannot rule out anteroseptal infarct Lateral T wave changes may be due to myocardial ischemia Abnormal ECG PREVIOUS TRACING : 09/06/2016 16.26 DOCTOR: Dilma Patricio Interpretating Date/Time 01/07/2017 23:16:24
[2017-01-08] VITALS (11 sets, daily range): BP systolic 140–171; BP diastolic 69–90; PULSE 70–86; RESP 20–22; TEMP 97.4–98.7; O2SAT 93–96
[2017-01-08] MEDS: hydrALAZINE HCL 50 MG TAB PO SCH ×3 (05:49→21:35)
[2017-01-08 06:31] LABS: AUTOMATED NEUTROPHIL # 5.8 TH/MM3 (1.8-7.7); BASOPHIL % 0.5 % (0.0-2.0); EOSINOPHIL # 0.1 TH/MM3 (0-0.4); EOSINOPHIL % 1.7 % (0.0-4.0); HEMATOCRIT 43.2 % (39.0-51.0); HEMO FLAGS DIFF FINAL; LYMPHOCYTE # 1.5 TH/MM3 (1.0-4.8); MEAN CELL VOLUME 86.6 FL (80.0-100.0); MEAN CORPUSCULAR HEMOGLOBIN 28.4 PG (27.0-34.0); MEAN CORPUSCULAR HGB CONC 32.8 % (32.0-36.0); NEUT % 70.8 % (16.0-70.0); PLATELET COUNT 169 TH/MM3 (150-450); RED BLOOD COUNT 4.99 MIL/MM3 (4.50-5.90); RED CELL DISTRIBUTION WIDTH 14.6 % (11.6-17.2); WHITE BLOOD COUNT 8.1 TH/MM3 (4.0-11.0)
[2017-01-08 06:36] LABS: BICARBONATE 25.8 MEQ/L (21.0-32.0); MAGNESIUM 1.9 MG/DL (1.5-2.5)
[2017-01-08] MEDS: INSULIN ASPART SUPPLEMENTAL SCALE SQ SCH ×4 (06:38→21:39)
[2017-01-08] MEDS: SODIUM CHLORIDE 0.9% FLUSH 5 ML FLUSH FLUSH SCH ×2 (09:05→21:30)
[2017-01-08] MEDS: ASPIRIN EC 81 MG TABEC PO SCH (09:06)
[2017-01-08] MEDS: FUROSEMIDE 40 MG/4 ML VIAL IV PUSH SCH (09:06)
[2017-01-08] MEDS: METOPROLOL SUCCINATE 25 MG EXTENDED RELEASE TAB PO SCH ×2 (09:06→21:35)
[2017-01-08] MEDS: LISINOPRIL 5 MG TAB PO SCH (09:06)
[2017-01-08] MEDS: GABAPENTIN 100 MG CAP PO SCH ×3 (09:06→16:55)
[2017-01-08] MEDS: ISOSORBIDE MONONITRATE 30 MG TAB PO SCH (09:06)
[2017-01-08] MEDS: PANTOPRAZOLE SOD 40 MG DELAYED RELEASE TAB PO SCH (09:07)
[2017-01-08] MEDS: NICOTINE 21 MG/24 HR PATCH TD SCH (09:07)
[2017-01-08] MEDS: CLOPIDOGREL 75 MG TAB PO SCH (09:07)
[2017-01-08] MEDS: SERTRALINE HCL 100 MG TAB PO SCH (09:07)
[2017-01-08] MEDS: ATORVASTATIN 40 MG TAB PO SCH (09:07)
[2017-01-08] MEDS: glipiZIDE 10 MG TAB PO SCH (09:07)
--- NOTE | 2017-01-08 14:54 | HHI.PR ---
Subjective Remarks Patient is feeling well today. He denies any dyspnea. No chest pain or chest pressure. Objective Vitals Vital Signs Date Time Temp Pulse Resp B/P Pulse Ox O2 Delivery O2 Flow Rate FiO2 01/08/17 09:00 70 21 95 01/08/17 08:08 93 Nasal Cannula 2.00 01/08/17 08:00 73 01/08/17 08:00 97.7 72 21 156/79 96 01/08/17 08:00 96 Room Air 01/08/17 06:00 73 01/08/17 04:00 97.5 73 20 152/78 95 01/08/17 04:00 73 01/08/17 02:00 86 01/08/17 00:00 98.0 78 22 140/69 94 01/08/17 00:00 79 01/07/17 22:00 91 01/07/17 20:50 92 Nasal Cannula 2.00 01/07/17 20:00 95 01/07/17 20:00 Nasal Cannula 2.00 01/07/17 20:00 97.9 88 26 161/71 96 01/07/17 18:00 86 01/07/17 18:00 86 27 181/70 01/07/17 17:55 88 32 200/88 01/07/17 17:50 88 36 177/77 01/07/17 17:45 80 20 161/75 94 01/07/17 17:40 80 21 161/74 95 01/07/17 17:35 82 23 176/84 94 01/07/17 17:30 82 32 186/81 94 01/07/17 17:25 82 20 151/64 94 01/07/17 17:20 80 22 173/82 94 01/07/17 17:03 78 19 193/89 01/07/17 17:00 78 01/07/17 16:33 78 23 181/89 94 01/07/17 16:13 76 21 179/85 95 01/07/17 16:00 76 01/07/17 15:58 78 23 181/84 94 01/07/17 15:55 78 22 186/82 95 01/07/17 15:00 76 18 162/55 96 01/07/17 15:00 80 I/O 01/07/17 01/07/17 01/07/17 01/08/17 01/08/174/17 07:00 15:00 23:00 07:00 15:00 23:00 Intake Total 389 ml 720 ml 620 ml 240 ml Output Total 750 ml 2500 ml 1750 ml 500 ml Balance -361 ml -1780 ml -1130 ml -260 ml Intake Oral 360 ml 720 ml 620 ml 240 ml IV Total 29 ml 0 ml 0 ml 0 ml Output Urine Total 750 ml 2500 ml 1750 ml 500 ml # Bowel Movements 0 0 0 0 Result Diagram: 01/08/1760001/08/17600 Objective Remarks GENERAL: Well-nourished, well-developed pleasant male patient. SKIN: Warm and dry. HEAD: Normocephalic. EYES: No scleral icterus. No injection or drainage. NECK: Supple, trachea midline. No JVD or lymphadenopathy. CARDIOVASCULAR: Regular rate and rhythm without murmurs, gallops, or rubs. RESPIRATORY: Breath sounds equal and clear to auscultation bilaterally. No accessory muscle use. GASTROINTESTINAL: Abdomen soft, non-tender, nondistended. EXTREMITIES: No cyanosis, or edema. NEUROLOGICAL: Awake, alert, and oriented x 3. Non-focal. A/P Problem List: (1) Systemic inflammatory response syndrome ICD Code: R65.10 Status: Acute (2) Febrile illness ICD Code: R50.9 Status: Acute (3) Leukocytosis ICD Code: D72.829 Status: Acute (4) Acute pulmonary edema ICD Code: J81.0 Status: Acute (5) Shortness of breath ICD Code: R06.02 Status: Acute (6) Elevated troponin ICD Code: R74.8 Status: Acute (7) Accelerated hypertension ICD Code: I10 Status: Acute (8) Coronary artery disease ICD Code: I25.10 Status: Acute (9) Diabetes ICD Code: E11.9 Status: Acute (10) Acute CHF (congestive heart failure) ICD Code: I50.9 Status: Acute Assessment and Plan Acute pulmonary edema in the presence of hypertension emergency / acute systolic and diastolic congestive heart failure. Now diuresed well. I will DC his Muhammad and change to by mouth Lasix. Previous echocardiogram in August indicates good ejection fraction with normal systolic function, however repeat 2 -D echocardiogram now shows depressed ejection fraction of 35%. We have consulted cardiology and Dr. Mckay plans for left heart catheterization on Tuesday once he stabilized from CHF perspective. We'll continue beta lamont and MEEK inhibitor. Consulted cardiology for further recommendations Hypertensive emergency: resolved, status post Vasotec, nitroglycerin drip. Home medications have been continued Elevated troponin: Equivocal troponin elevation in the presence of hypertensive emergency, pulmonary edema. No change in EKGs. Patient is on aspirin, metoprolol, Imdur, Norvasc, lisinopril, statin. Cardiology planning and catheterization on Tuesday. Systemic inflammatory response syndrome: Resolved. Patient met criteria on presentation with a fever 101.2, leukocytosis. No infectious source was noted. Patient now afebrile, leukocytosis has resolved. Influenza testing was negative, blood cultures are pending, chest x-ray does not indicate any infectious process Hyperlipidemia, coronary artery disease: Home medications have been resumed Diabetes: Oral hypoglycemics have been continued, Accu-Cheks with sliding scale insulin DVT prevention: Sequential compression devices Problem Qualifiers (1) Leukocytosis: Qualified Code: D72.829 - Leukocytosis, unspecified type (2) Coronary artery disease: Qualified Code: I25.810 - Coronary artery disease involving other coronary artery bypass graft, angina presence unspecified (3) Diabetes: Qualified Code: E13.8 - Other specified diabetes mellitus with complication, with long-term current use of insulin (4) Acute CHF (congestive heart failure): Qualified Code: I50.41 - Acute combined systolic and diastolic congestive heart failure Lulu Mendosa MD Jan 08, 2017 14:54
[2017-01-08] MEDS: FUROSEMIDE 40 MG TAB PO SCH (16:55)
[2017-01-08] MEDS: REMOVE OLD NICODERM (NICOTINE) PATCH TD SCH (21:30)
[2017-01-08] MEDS: traZODone HCL 50 MG TAB PO SCH (21:34)
[2017-01-08] MEDS: LISINOPRIL 10 MG TAB PO SCH (21:35)
[2017-01-08] MEDS: INSULIN DETEMIR 100 UNITS/ML VIAL SQ SCH (21:35)
[2017-01-09] VITALS (13 sets, daily range): BP systolic 128–166; BP diastolic 69–83; PULSE 70–89; RESP 16–20; TEMP 97–98.8; O2SAT 95–98
[2017-01-09] MEDS: hydrALAZINE HCL 50 MG TAB PO SCH ×3 (06:21→20:35)
[2017-01-09] MEDS: INSULIN ASPART SUPPLEMENTAL SCALE SQ SCH ×4 (06:23→20:30)
[2017-01-09 07:25] LABS: POTASSIUM 4.3 MEQ/L (3.5-5.1)
[2017-01-09 07:33] LABS: BICARBONATE 23.6 MEQ/L (21.0-32.0)
[2017-01-09] MEDS: GABAPENTIN 100 MG CAP PO SCH ×3 (08:30→17:32)
[2017-01-09] MEDS: NICOTINE 21 MG/24 HR PATCH TD SCH (08:30)
[2017-01-09] MEDS: ISOSORBIDE MONONITRATE 30 MG TAB PO SCH (08:30)
[2017-01-09] MEDS: glipiZIDE 10 MG TAB PO SCH (08:31)
[2017-01-09] MEDS: PANTOPRAZOLE SOD 40 MG DELAYED RELEASE TAB PO SCH (08:31)
[2017-01-09] MEDS: METOPROLOL SUCCINATE 25 MG EXTENDED RELEASE TAB PO SCH ×2 (08:31→20:28)
[2017-01-09] MEDS: SERTRALINE HCL 100 MG TAB PO SCH (08:31)
[2017-01-09] MEDS: LISINOPRIL 10 MG TAB PO SCH ×2 (08:31→20:28)
[2017-01-09] MEDS: FUROSEMIDE 40 MG TAB PO SCH ×2 (08:31→17:32)
[2017-01-09] MEDS: ASPIRIN EC 81 MG TABEC PO SCH (08:31)
[2017-01-09] MEDS: SODIUM CHLORIDE 0.9% FLUSH 5 ML FLUSH FLUSH SCH ×2 (08:32→20:30)
[2017-01-09] MEDS: ATORVASTATIN 40 MG TAB PO SCH (08:32)
[2017-01-09] MEDS: CLOPIDOGREL 75 MG TAB PO SCH (08:32)
--- NOTE | 2017-01-09 09:21 | HHI.PR ---
Subjective Remarks Patient seen and examined today with Dr. Mendosa. Patient denies any chest discomfort, blood pressure has remained stable. Patient is inquiring if he could have the catheterization done in outpatient setting. Will contact cardiology for further recommendations. Objective Vitals Vital Signs Date Time Temp Pulse Resp B/P Pulse Ox O2 Delivery O2 Flow Rate FiO2 01/09/17 04:00 97.2 70 18 137/73 97 01/09/17 00:27 97.0 74 16 135/69 98 01/08/17 22:09 94 Nasal Cannula 2.00 01/08/17 21:27 98.7 85 20 171/90 94 01/08/17 20:00 94 Room Air 01/08/17 20:00 78 01/08/17 16:00 97.4 84 20 150/89 95 I/O 01/08/17 01/08/17 01/08/17 01/09/17 01/09/17 01/09/17 07:00 15:00 23:00 07:00 15:00 23:00 Intake Total 240 ml 320 ml 1115 ml Output Total 500 ml 1275 ml 1275 ml 800 ml 725 ml Balance -260 ml -955 ml -1275 ml -800 ml 390 ml Intake Oral 240 ml 320 ml 1115 ml IV Total 0 ml 0 ml Output Urine Total 500 ml 1275 ml 1275 ml 800 ml 725 ml # Voids 2 # Bowel Movements 0 Result Diagram: 01/08/17 0601 01/09/17 0700 Objective Remarks GENERAL: Well-developed, well-nourished, in no acute distress. alert and orientated HEENT: Head is normocephalic without any lesions or masses noted. Facial features are symmetric. Eyes: Extraocular muscles are intact. Conjunctivae were clear. NECK: Supple without any masses. Trachea midline no deviation. No JVD, CARDIAC: Regular rhythm, regular rate. S1/S2 are heard. No murmurs gallops or rubs. LUNGS: Clear to auscultation bilaterally. No wheeze, rhonchi or rales. No use of accessory muscles on inspiration or expiration. ABDOMEN: Soft, nontender. Nondistended. Bowel sounds heard in all 4 quadrants. No organomegaly or masses. Negative rebound, negative guarding EXTREMITIES: No edema, pulses are equal bilaterally. No cyanosis or clubbing NEUROLOGY: Mood and affect appear appropriate. Cranial nerves II through XII grossly intact. Moving all extremities, speech is clear Urinary Catheter: No Vascular Central Line Catheter: No A/P Assessment and Plan Acute pulmonary edema in the presence of hypertension emergency / acute systolic and diastolic congestive heart failure. Diuresing well. Patient changed to Lasix by mouth. Muhammad has been discontinued. Previous echocardiogram in August indicates good ejection fraction with normal systolic function, however repeat 2-D echocardiogram now shows depressed ejection fraction of 35%. Consulted cardiology and Dr. Mckay plans for left heart catheterization on Tuesday once he stabilized from CHF perspective. We'll continue beta lamont and MEEK inhibitor. Hypertensive emergency: resolved, status post Vasotec, nitroglycerin drip. Blood pressure is stable with medication adjustments Elevated troponin: Equivocal troponin elevation in the presence of hypertensive emergency, pulmonary edema. No change in EKGs. Patient is on aspirin, metoprolol, Imdur, Norvasc, lisinopril, statin. Cardiology planning and catheterization on Tuesday. Systemic inflammatory response syndrome: Resolved. Patient met criteria on presentation with a fever 101.2, leukocytosis. No infectious source was noted. Patient now afebrile, leukocytosis has resolved. Influenza testing was negative, blood cultures are pending, chest x-ray does not indicate any infectious process Hyperlipidemia, coronary artery disease: LDL 108, Home medications have been resumed Diabetes: Oral hypoglycemics have been continued, Accu-Cheks with sliding scale insulin DVT prevention: Sequential compression devices Written by Boubacar Bahena PA-C, acting as scribe for Dr. Mendosa on 01/09/17 at 1240. The documentation accurately reflects the work and decisions performed face-to- face by Dr. Mendosa on 01/09/17 at 1240. Discharge Planning Transfer to [facility] today for heart catheterization tomorrow with Dr. Mckay. Boubacar Bahena Jan 09, 2017 09:21 Lulu Mendosa MD Jan 09, 2017 14:38
[2017-01-09] MEDS: cloNIDine HCL 0.1 MG TAB PO PRN (17:49)
[2017-01-09] MEDS: traZODone HCL 50 MG TAB PO SCH (20:28)
[2017-01-09] MEDS: INSULIN DETEMIR 100 UNITS/ML VIAL SQ SCH (20:29)
[2017-01-09] MEDS: REMOVE OLD NICODERM (NICOTINE) PATCH TD SCH (20:30)
[2017-01-10] VITALS (24 sets, daily range): BP systolic 123–169; BP diastolic 69–86; PULSE 72–89; RESP 18; TEMP 97.8–98.5; O2SAT 93–97
[2017-01-10] MEDS: cloNIDine HCL 0.1 MG TAB PO PRN (00:32)
[2017-01-10] MEDS: hydrALAZINE HCL 50 MG TAB PO SCH ×3 (05:45→20:51)
[2017-01-10] MEDS: INSULIN ASPART SUPPLEMENTAL SCALE SQ SCH ×4 (05:46→20:58)
[2017-01-10] MEDS: ATORVASTATIN 40 MG TAB PO SCH (09:08)
[2017-01-10] MEDS: LISINOPRIL 10 MG TAB PO SCH ×2 (09:08→21:21)
[2017-01-10] MEDS: ISOSORBIDE MONONITRATE 30 MG TAB PO SCH (09:08)
[2017-01-10] MEDS: SERTRALINE HCL 100 MG TAB PO SCH (09:08)
[2017-01-10] MEDS: GABAPENTIN 100 MG CAP PO SCH ×3 (09:08→18:00)
[2017-01-10] MEDS: CLOPIDOGREL 75 MG TAB PO SCH (09:09)
[2017-01-10] MEDS: FUROSEMIDE 40 MG TAB PO SCH ×2 (09:09→18:00)
[2017-01-10] MEDS: PANTOPRAZOLE SOD 40 MG DELAYED RELEASE TAB PO SCH (09:09)
[2017-01-10] MEDS: SODIUM CHLORIDE 0.9% FLUSH 5 ML FLUSH FLUSH SCH (09:09)
[2017-01-10] MEDS: METOPROLOL SUCCINATE 25 MG EXTENDED RELEASE TAB PO SCH ×2 (09:09→20:53)
[2017-01-10] MEDS: ASPIRIN EC 81 MG TABEC PO SCH (09:09)
[2017-01-10] MEDS: glipiZIDE 10 MG TAB PO SCH (09:09)
[2017-01-10] MEDS: NICOTINE 21 MG/24 HR PATCH TD SCH (09:09)
--- NOTE | 2017-01-10 12:40 | HHI.PR ---
Subjective Remarks Resting in bed, afebrile, no chest pain or short of breath, plan for heart catheter today Objective Vitals Vital Signs Date Time Temp Pulse Resp B/P Pulse Ox O2 Delivery O2 Flow Rate FiO2 01/10/17 12:33 98.2 75 18 143/82 96 01/10/17 08:03 98.1 74 18 142/79 96 01/10/17 08:03 96 Room Air 01/10/17 08:03 75 01/10/17 06:00 72 01/10/17 05:00 77 01/10/17 04:00 98.5 73 18 137/69 94 01/10/17 04:00 Room Air 01/10/17 04:00 73 01/10/17 03:00 72 01/10/17 02:00 74 01/10/17 01:00 77 01/10/17 00:00 Room Air 01/10/17 00:00 98.2 75 18 169/71 97 01/10/17 00:00 75 01/09/17 23:00 79 01/09/17 22:18 96 01/09/17 22:00 80 01/09/17 21:00 81 01/09/17 20:00 Room Air 01/09/17 20:00 84 01/09/17 20:00 98.7 84 20 147/83 96 01/09/17 18:00 89 01/09/17 17:45 98.8 80 18 166/74 97 01/09/17 17:40 87 01/09/17 17:34 97 Room Air I/O 01/09/17 01/09/17 01/09/17 01/10/17 01/10/17 01/10/17 07:00 15:00 23:00 07:00 15:00 23:00 Intake Total 1355 ml 750 ml 482 ml Output Total 800 ml 1125 ml 700 ml 2450 ml Balance -800 ml 230 ml 50 ml -1968 ml Intake Oral 1355 ml 750 ml 480 ml IV Total 2 ml Output Urine Total 800 ml 1125 ml 700 ml 2450 ml # Voids 2 # Bowel Movements 0 Result Diagram: 01/08/17 0601 01/09/17 0700 Objective Remarks GENERAL: This is a well-nourished, well-developed patient, in no apparent distress. SKIN: No rashes, warm and dry HEAD: Atraumatic. Normocephalic. EYES: Pupils equal round and reactive. Extraocular motions intact. No scleral icterus. ENT: Nose without bleeding, or drainage, Airway patent. NECK: Trachea midline. Supple CARDIOVASCULAR: Regular rate and rhythm without murmurs, gallops, or rubs. RESPIRATORY: Fair air entry bilaterally. No wheezes, rales, or rhonchi. GASTROINTESTINAL: Abdomen soft, non-tender, nondistended. Positive bowel sounds MUSCULOSKELETAL: Extremities without clubbing, cyanosis, or edema. Pedal pulses appreciated NEUROLOGICAL: Awake and alert. Moves all extremity. Normal speech.no focal neurological deficit A/P Problem List: (1) Systemic inflammatory response syndrome ICD Code: R65.10 Status: Acute (2) Febrile illness ICD Code: R50.9 Status: Acute (3) Leukocytosis ICD Code: D72.829 Status: Acute (4) Acute pulmonary edema ICD Code: J81.0 Status: Acute (5) Shortness of breath ICD Code: R06.02 Status: Acute (6) Elevated troponin ICD Code: R74.8 Status: Acute (7) Accelerated hypertension ICD Code: I10 Status: Acute (8) Coronary artery disease ICD Code: I25.10 Status: Acute (9) Diabetes ICD Code: E11.9 Status: Acute (10) Acute CHF (congestive heart failure) ICD Code: I50.9 Status: Acute Assessment and Plan 01/10/17: Continue current care, plan for heart catheter today, CBC BMP in a.m., BMP in a.m. A/P: Acute pulmonary edema in the presence of hypertension emergency / acute systolic and diastolic congestive heart failure. Diuresing well. Patient changed to Lasix by mouth. Muhammad has been discontinued. Previous echocardiogram in August indicates good ejection fraction with normal systolic function, however repeat 2-D echocardiogram now shows depressed ejection fraction of 35%. Consulted cardiology and Dr. Mckay plans for left heart catheterization possibly today continue beta lamont and MEEK inhibitor. Hypertensive emergency: resolved, status post Vasotec, nitroglycerin drip. Blood pressure is stable with medication adjustments Elevated troponin: Equivocal troponin elevation in the presence of hypertensive emergency, pulmonary edema. No change in EKGs. Patient is on aspirin, metoprolol, Imdur, Norvasc, lisinopril, statin. Cardiology planning and catheterization on Tuesday. Systemic inflammatory response syndrome: Resolved. Patient met criteria on presentation with a fever 101.2, leukocytosis. No infectious source was noted. Patient now afebrile, leukocytosis has resolved. Influenza testing was negative, blood cultures are pending, chest x-ray does not indicate any infectious process Hyperlipidemia, coronary artery disease: LDL 108, Home medications have been resumed Diabetes: Oral hypoglycemics have been continued, Accu-Cheks with sliding scale insulin DVT prevention: Sequential compression devices Problem Qualifiers (1) Leukocytosis: Qualified Code: D72.829 - Leukocytosis, unspecified type (2) Coronary artery disease: Qualified Code: I25.810 - Coronary artery disease involving other coronary artery bypass graft, angina presence unspecified (3) Diabetes: Qualified Code: E13.8 - Other specified diabetes mellitus with complication, with long-term current use of insulin (4) Acute CHF (congestive heart failure): Qualified Code: I50.41 - Acute combined systolic and diastolic congestive heart failure Mikaela Benitez MD Jan 10, 2017 12:40
[2017-01-10] MEDS ORDERED: IOHEXOL 350 MG/ML 100 ML BTL (for Cath Lab) OTHER ONE (14:21)
[2017-01-10] MEDS ORDERED: IOHEXOL 350 MG/ML 50 ML BTL (for Cath Lab) OTHER ONE (14:21)
[2017-01-10] MEDS ORDERED: HEPARIN-NS/PF INJ 500 ML ONE (14:29)
[2017-01-10] MEDS ORDERED: MIDAZOLAM HCL 2 MG/2 ML VIAL ONE (14:31)
[2017-01-10] MEDS ORDERED: ATROPINE SULFATE 1 MG/ML VIAL IV PRN (15:30)
[2017-01-10] MEDS ORDERED: ONDANSETRON HCL 4 MG/2 ML VIAL IV PRN (15:30)
[2017-01-10] MEDS ORDERED: MISC INFORMATION XX ONE (15:30)
[2017-01-10] MEDS ORDERED: SODIUM CHLORIDE 0.9% FLUSH 5 ML FLUSH IVF PRN (15:30)
--- NOTE | 2017-01-10 16:21 | PD.CARD.PN ---
Subjective Subjective Remarks no complaints no chest pain s/p LHC Objective Medications Current Medications Medications (Trade) Dose Ordered Sig/Teresa Route Start Time Stop Time Status Last Admin (Narcan Inj) 0.4 mg UNSCH PRN IV 01/06/17 21:00 (D50w (Vial) Inj) 25 ml UNSCH PRN IV PUSH 01/07/17 08:15 (Glucagon Inj) 1 mg UNSCH PRN OTHER 01/07/17 08:15 (Vasotec Inj) 1.25 mg Q6H PRN IV PUSH 01/07/17 08:15 01/07/17 15:58 (Norvasc) 10 mg DAILY PO 01/07/17 09:00 01/10/17 09:08 (Ecotrin Ec) 81 mg DAILY PO 01/07/17 09:00 01/10/17 09:09 (Lipitor) 80 mg DAILY PO 01/07/17 09:00 01/10/17 09:08 (Plavix) 75 mg DAILY PO 01/07/17 09:00 01/10/17 09:09 (Neurontin) 100 mg TID PO 01/07/17 09:00 01/10/17 13:10 (Glucotrol) 10 mg DAILY PO 01/07/17 09:00 01/10/17 09:09 (Apresoline) 100 mg Q8HR PO 01/07/17 14:00 01/10/17 13:10 (Imdur) 30 mg DAILY PO 01/07/17 09:00 01/10/17 09:08 (Protonix) 40 mg DAILY PO 01/07/17 09:00 01/10/17 09:09 (Zoloft) 100 mg DAILY PO 01/07/17 09:00 01/10/17 09:08 (Desyrel) 50 mg HS PO 01/07/17 21:00 01/09/17 20:28 (Pill Splitter) 1 ea UNSCH PRN OTHER 01/07/17 08:30 01/08/17 09:06 (Toprol Xl) 25 mg BID PO 01/07/17 09:00 01/10/17 09:09 (Habitrol 21 Mg Patch.24 Hr) 1 patch DAILY TD 01/07/17 14:15 01/10/17 09:09 Miscellaneous Information 1 HS TD 01/07/17 21:00 01/09/17 20:30 (Catapres) 0.1 mg Q6H PRN PO 01/07/17 17:00 01/10/17 00:32 (Apresoline Inj) 20 mg Q4H PRN IV PUSH 01/07/17 17:00 01/07/17 17:16 (Lasix) 40 mg BID@09,18 PO 01/08/17 18:00 01/10/17 09:09 (Prinivil) 10 mg BID PO 01/08/17 21:00 01/10/17 09:08 (Levemir Inj) 10 units HS SQ 01/08/17 21:00 01/09/17 20:29 (NS Flush) 2 ml BID IVF 01/10/17 21:00 (NS Flush) 2 ml UNSCH PRN IVF 01/10/17 15:30 (Atropine Inj) 0.5 mg UNSCH PRN IV 01/10/17 15:30 (Zofran Inj) 4 mg Q4H PRN IV 01/10/17 15:30 Vital Signs / I&O Vital Signs Date Time Temp Pulse Resp B/P Pulse Ox O2 Delivery O2 Flow Rate FiO2 01/10/17 12:33 98.2 75 18 143/82 96 01/10/17 08:03 98.1 74 18 142/79 96 01/10/17 08:03 96 Room Air 01/10/17 08:03 75 01/10/17 06:00 72 01/10/17 05:00 77 01/10/17 04:00 98.5 73 18 137/69 94 01/10/17 04:00 Room Air 01/10/17 04:00 73 01/10/17 03:00 72 01/10/17 02:00 74 01/10/17 01:00 77 01/10/17 00:00 Room Air 01/10/17 00:00 98.2 75 18 169/71 97 01/10/17 00:00 75 01/09/17 23:00 79 01/09/17 22:18 96 01/09/17 22:00 80 01/09/17 21:00 81 01/09/17 20:00 Room Air 01/09/17 20:00 84 01/09/17 20:00 98.7 84 20 147/83 96 01/09/17 18:00 89 01/09/17 17:45 98.8 80 18 166/74 97 01/09/17 17:40 87 01/09/17 17:34 97 Room Air I/O 01/09/17 01/09/17 01/09/17 01/10/17 01/10/17 01/10/17 07:00 15:00 23:00 07:00 15:00 23:00 Intake Total 1355 ml 750 ml 482 ml Output Total 800 ml 1125 ml 700 ml 2450 ml Balance -800 ml 230 ml 50 ml -1968 ml Intake Oral 1355 ml 750 ml 480 ml IV Total 2 ml Output Urine Total 800 ml 1125 ml 700 ml 2450 ml # Voids 2 # Bowel Movements 0 Physical Exam GENERAL: Well-nourished, well-developed patient. SKIN: Warm and dry. HEAD: Normocephalic. EYES: No scleral icterus. No injection or drainage. NECK: Supple, trachea midline. No JVD or lymphadenopathy. CARDIOVASCULAR: Regular rate and rhythm without murmurs, gallops, or rubs. RESPIRATORY: Breath sounds equal bilaterally. No accessory muscle use. GASTROINTESTINAL: Abdomen soft, non-tender, nondistended. EXTREMITIES: No cyanosis, or edema. NEUROLOGICAL: Awake, alert, and oriented x 3. Non-focal. Assessment and Plan Problem List: (1) Acute CHF (congestive heart failure) Assessment and Plan: Compensated New LV dysfunction C showing patent 3/3 grafts with [place] vessel CAD No need for further cardiac work up Continue medication optimizations for CAD LifeVest before d/c Follow up with cardiology for AICD placement (2) NSTEMI (non-ST elevated myocardial infarction) (3) Shortness of breath (4) Coronary artery disease Problem Qualifiers (1) Acute CHF (congestive heart failure): Qualified Code: I50.41 - Acute combined systolic and diastolic congestive heart failure (2) Coronary artery disease: Qualified Code: I25.810 - Coronary artery disease involving other coronary artery bypass graft, angina presence unspecified Rogelio Melgar MD Jan 10, 2017 16:21
--- NOTE | 2017-01-10 18:43 | MA ---
cc: JASMYNE RAND DATE 01/10/2017 DATE OF 1950 PROCEDURE PERFORMED 1. Left heart catheterization. 2. Selective right and left coronary angiography. 3. Left ventricular pressure recordings. 4. Right common femoral artery angiography. INDICATION New left ventricular systolic dysfunction / acute systolic heart failure / [place] [employer] of III. DESCRIPTION OF PROCEDURE Consent signed. The patient was brought into the cardiac medical lab scientist in a fasting state. The right groin was prepped and draped in sterile fashion. Using 1% lidocaine for local anesthesia and a micropuncture kit, a 5-[place] sheath was inserted into the right common femoral artery. Right common femoral artery angiography was performed to confirm position of the sheath. Then selective right and left coronary angiography was performed with a JR-4 and a JL-4 diagnostic catheters, followed by angiography of the left internal mammary artery and the saphenous vein grafts. Angiography was performed in multiple views. The JR diagnostic catheter was introduced into the left ventricle over a wire. Left ventricular hemodynamics were recorded followed by pullback. The patient tolerated the procedure well without complications. ESTIMATED BLOOD LOSS Less than 50 mL. CONTRAST Total contrast used 100 mL. The right groin access site was closed with manual pressure. RESULTS The left ventricle. Left ventricular pressure was 160/10 with an LVEDP of 220. The aortic pressure was 162/70 with a mean of 107. There was no gradient upon pullback from left ventricle to aorta. Angiography. 1. Left main. Distal 30% lesion, calcified. 2. LAD is a transapical vessel. It has minimal luminal irregularities throughout. It has a 70% lesion after S1. It is 100% occluded after S2. It has antegrade flow coming from the HENAO. The patient has a big septal, first septal branch. The first diagonal is patent with a 60% lesion ostially. 3. Left circumflex is a small vessel. It is diffusely diseased. OM1, OM2 are patent. 4. Ramus. 100% occluded. 5. The right coronary artery is diffusely diseased. Dominant. It has proximal 60 % lesion. It has retrograde flow on its distal portion. 6. Saphenous vein graft to the PDA- Patent. 7. Saphenous vein graft to ramus- Patent. 8. HENAO to LAD- Patent. CONCLUSION 1. Severe wiyot vessel coronary artery disease with 3 out of 3 patent grafts. 2. Elevated left ventricular end diastolic pressure. 3. LV systolic dysfunction. RECOMMENDATIONS Continue aggressive medical management for secondary prevention of coronary artery disease. The patient is a candidate for a LifeVest and he should follow up with cardiology in 3 months for AICD placement. MD SALLY Grissom/HERNÁN /3:29 PM /6:28 PM [email or web address]
[2017-01-10] MEDS: traZODone HCL 50 MG TAB PO SCH (20:51)
[2017-01-10] MEDS: REMOVE OLD NICODERM (NICOTINE) PATCH TD SCH (20:52)
[2017-01-10] MEDS: INSULIN DETEMIR 100 UNITS/ML VIAL SQ SCH (20:58)
[2017-01-10] MEDS: SODIUM CHLORIDE 0.9% FLUSH 5 ML FLUSH IVF SCH (21:00)
[2017-01-11] VITALS (10 sets, daily range): BP systolic 113–154; BP diastolic 55–74; PULSE 69–82; RESP 16–18; TEMP 97.6–98.2; O2SAT 95–98
[2017-01-11] MEDS: hydrALAZINE HCL 50 MG TAB PO SCH ×2 (06:01→12:22)
[2017-01-11] MEDS: INSULIN ASPART SUPPLEMENTAL SCALE SQ SCH ×2 (06:04→12:22)
[2017-01-11] MEDS: LISINOPRIL 10 MG TAB PO SCH (08:45)
[2017-01-11] MEDS: GABAPENTIN 100 MG CAP PO SCH ×2 (08:45→12:22)
[2017-01-11] MEDS: FUROSEMIDE 40 MG TAB PO SCH (08:46)
[2017-01-11] MEDS: ISOSORBIDE MONONITRATE 30 MG TAB PO SCH (08:46)
[2017-01-11] MEDS: METOPROLOL SUCCINATE 25 MG EXTENDED RELEASE TAB PO SCH (08:46)
[2017-01-11] MEDS: ATORVASTATIN 40 MG TAB PO SCH (08:46)
[2017-01-11] MEDS: CLOPIDOGREL 75 MG TAB PO SCH (08:46)
[2017-01-11] MEDS: ASPIRIN EC 81 MG TABEC PO SCH (08:47)
[2017-01-11] MEDS: glipiZIDE 10 MG TAB PO SCH (08:47)
[2017-01-11] MEDS: NICOTINE 21 MG/24 HR PATCH TD SCH (08:47)
[2017-01-11] MEDS: PANTOPRAZOLE SOD 40 MG DELAYED RELEASE TAB PO SCH (08:47)
[2017-01-11] MEDS: SERTRALINE HCL 100 MG TAB PO SCH (08:47)
[2017-01-11] MEDS: SODIUM CHLORIDE 0.9% FLUSH 5 ML FLUSH IVF SCH (08:47)
--- NOTE | 2017-01-11 10:55 | HHI.DS ---
Discharge Summary Admission Date Jan 06, 2017 at 21:09 Discharge Date: Jan 11, 2017 Admitting Diagnosis CHF with pulmonary edema, sepsis (1) Systemic inflammatory response syndrome ICD Code: R65.10 (2) Febrile illness ICD Code: R50.9 (3) Leukocytosis ICD Code: D72.829 (4) Acute pulmonary edema ICD Code: J81.0 (5) Shortness of breath ICD Code: R06.02 (6) Elevated troponin ICD Code: R74.8 (7) Accelerated hypertension ICD Code: I10 (8) Coronary artery disease ICD Code: I25.10 (9) Diabetes ICD Code: E11.9 (10) Acute CHF (congestive heart failure) ICD Code: I50.9 Procedures See below Brief History - From Admission 67-year-old male with known history of hypertension, hyperlipidemia, coronary artery disease, history of coronary bypass surgery 4 vessel, diabetes, chronic obstructive pulmonary disease, chronic tobacco use, history of respiratory failure secondary to bilateral pneumonia who presented to hospital because of shortness of breath and dyspnea. Patient states that his normal state of health until approximately 2 days ago. At that time the patient states that he started developing difficulty breathing, shortness of breath. Patient did have episode 2 days ago which he lay down and when he woke up it was resolved. Last night he developed shortness of breath and dyspnea with associated diaphoresis. He tried to lay down however he could not lay flat. He had to sit up. He drove himself to the hospital for evaluation. Patient denies any chest pain, nausea, vomiting, dizziness. Patient presented to the emergency department found to have hypertensive emergency with blood pressure 271/132, patient had severe shortness of breath in which she was indicated that the ER staff was planning on intubating the patient. Patient put on BiPAP for his shortness of breath with improvement. Patient was given Lasix, Vasotec, started on nitroglycerin drip for his blood pressure with improvement. Workup did indicate leukocytosis, tachycardia which have resolved. No infectious source was found. Chest x-ray did show some slight congestive heart failure. Patient does not have previous history of congestive heart failure. Previous echocardiogram done 08/19/2016 does show ejection fraction 50-55% with small area of apical akinesis. However systolic function was normal. Patient was admitted to the ICU for continued management. On time evaluating the patient he is feeling much better. He denies any fever, chills, cough, congestion, nausea, vomiting, lower extremity edema. CBC/BMP: 01/08/17 0601 01/09/17 0700 Significant Findings Laboratory Tests Test 01/09/17 07:00 Chloride Level 109 MEQ/L (98-107) Blood Urea Nitrogen 28 MG/DL (7-18) Estimat Glomerular Filtration 67 ML/MIN (>89) Rate Random Glucose 154 MG/DL (74-106) PE at Discharge GENERAL: This is a well-nourished, well-developed patient, in no apparent distress. SKIN: No rashes, warm and dry HEAD: Atraumatic. Normocephalic. EYES: Pupils equal round and reactive. Extraocular motions intact. No scleral icterus. ENT: Nose without bleeding, or drainage, Airway patent. NECK: Trachea midline. Supple CARDIOVASCULAR: Regular rate and rhythm without murmurs, gallops, or rubs. RESPIRATORY: Fair air entry bilaterally. No wheezes, rales, or rhonchi. GASTROINTESTINAL: Abdomen soft, non-tender, nondistended. Positive bowel sounds MUSCULOSKELETAL: Extremities without clubbing, cyanosis, or edema. Pedal pulses appreciated NEUROLOGICAL: Awake and alert. Moves all extremity. Normal speech.no focal neurological deficit Hospital Course 67 y/o admitted with Acute pulmonary edema in the presence of hypertension emergency / acute systolic and diastolic congestive heart failure. Diuresing well. Patient changed to Lasix by mouth. Muhammad has been discontinued. Previous echocardiogram in August indicates good ejection fraction with normal systolic function, however repeat 2-D echocardiogram now shows depressed ejection fraction of 35%. Consulted cardiology and Dr. Mckay s/p left heart catheterization shpwed patent bypass , continue beta lamont and MEEK inhibitor. Hypertensive emergency: resolved, status post Vasotec, nitroglycerin drip. Blood pressure is stable with medication adjustments Elevated troponin: Equivocal troponin elevation in the presence of hypertensive emergency, pulmonary edema. No change in EKGs. Patient is on aspirin, metoprolol, Imdur, Norvasc, lisinopril, statin. Cardiology planning and catheterization on Eulalio. Systemic inflammatory response syndrome: Resolved. Patient met criteria on presentation with a fever 101.2, leukocytosis. No infectious source was noted. Patient now afebrile, leukocytosis has resolved. Influenza testing was negative, blood cultures are pending, chest x-ray does not indicate any infectious process Hyperlipidemia, coronary artery disease: LDL 108, Home medications have been resumed Diabetes: Oral hypoglycemics have been continued, Accu-Cheks with sliding scale insulin DVT prevention: Sequential compression devices Pt Condition on Discharge: Fair Discharge Disposition: Discharge Home Discharge Time: > 30 minutes Discharge Instructions DIET: Follow Instructions for: Heart Healthy Diet Activities you can perform: Weight Bearing as Khushboo New Medications: Furosemide (Furosemide) 40 Mg Tab 40 MG PO BID@09,18 c #60 TAB Lisinopril (Lisinopril) 10 Mg Tab 10 MG PO BID htn #60 TAB Continued Medications: Amlodipine (Norvasc) 10 Mg Tab 10 MG PO DAILY HTN Days [address] (Aspirin EC) 81 Mg Tabdr 81 MG PO DAILY CAD Days 30 TAB Atorvastatin (Atorvastatin) 80 Mg Tab 80 MG PO DAILY #30 Ref 0 TAB Clopidogrel (Clopidogrel) 75 Mg Tab 75 MG PO DAILY #30 Ref 0 TAB Gabapentin (Gabapentin) 100 Mg Cap 100 MG PO TID #90 Ref 0 CAP Glipizide (Glipizide) 10 Mg Tab 10 MG PO DAILY Take 30 minutes before a meal Blood Sugar Management #30 Ref 0 TAB Hydralazine (Hydralazine) 50 Mg Tab 100 MG PO Q8HR HTN Days 30 TAB Insulin Aspart Inj (Novolog Flexpen Inj) 300 Unit/3 Ml Pen 1 UNITS SQ Blood Sugar Management #1 Ref 0 PEN Insulin Detemir Inj (Levemir Inj) 1,000 unit/ 10 ML Vial 10 UNITS SQ HS Do not mix with any other Insulin. Blood Sugar Management Ref 0 VIAL Isosorbide Mononitrate (Imdur) 30 Mg Tab 30 MG PO DAILY@07 CAD Days 30 TAB Lansoprazole ODT (Prevacid Solutab ODT) 30 Mg Tab 30 MG PO DAILY GIPRO Days 30 TAB Metoprolol Succinate ER 24 HR (Metoprolol Succinate ER 24 HR) 25 Mg Tab 25 MG PO BID PRN HTN #30 Ref 0 TAB Quetiapine (Quetiapine) 25 Mg Tab 12.5 MG PO BID AGIT Days 30 TAB Sertraline (Sertraline) 100 Mg Tab 100 MG PO DAILY #30 Ref 0 TAB Trazodone (Trazodone) 50 Mg Tab 50 MG PO HS Control Depression #30 Ref 0 TAB Mikaela Benitez MD Jan 11, 2017 10:55 Mikaela Benitez MD Jan 11, 2017 10:55
[2017-01-11 11:13] LABS: BLOOD, URINE NEG (NEG); COMMENT (UR) CULT NOT INDICATED; CULTURE IF INDICATED CULT NOT INDICATED; GLUCOSE,URINE NEG (NEG); HYALINE CAST, URINE 6 /lpf (RARE); KETONE, URINE NEG (NEG); MUCUS URINE FEW /lpf (OCC); NITRITE,URINE NEG (NEG); URINE COLOR YELLOW (YELLW/STRAW)
[2017-01-13] MEDS ORDERED: FURO40TA PO (16:37)
[2017-01-13] MEDS ORDERED: LISI10TA3 PO (16:43)
== END 2017-01-11 14:53 | disposition home or self-care (01) | DRG 287 ==
LOC: PHED 18:50 → PHEDA 21:09 → PHICU 23:14 → PH3A 01-08 11:50 → HCIS 01-09 17:04
PROVIDERS: ADMIT Hospitalist; ATTEND Hospitalist
PROC: 4A023N7 Measurement of Cardiac Sampling and Pressure, Left Heart, Percutaneous Approach (ICD-10-PCS; principal; 2017-01-10)
PROC: B211YZZ Fluoroscopy of Multiple Coronary Arteries using Other Contrast (ICD-10-PCS; 2017-01-10)
PROC: B213YZZ Fluoroscopy of Multiple Coronary Artery Bypass Grafts using Other Contrast (ICD-10-PCS; 2017-01-10)
PROC: B218YZZ Fluoroscopy of Left Internal Mammary Bypass Graft using Other Contrast (ICD-10-PCS; 2017-01-10)
PROC: B215YZZ Fluoroscopy of Left Heart using Other Contrast (ICD-10-PCS; 2017-01-10)
DX: I11.0 Hypertensive heart disease with heart failure (principal); R65.10 Systemic inflammatory response syndrome (SIRS) of non-infectious origin without acute organ dysfunction; J44.9 Chronic obstructive pulmonary disease, unspecified; I16.1 Hypertensive emergency; I50.43 Acute on chronic combined systolic (congestive) and diastolic (congestive) heart failure; F17.210 Nicotine dependence, cigarettes, uncomplicated; E78.5 Hyperlipidemia, unspecified; E11.9 Type 2 diabetes mellitus without complications; I25.10 Atherosclerotic heart disease of native coronary artery without angina pectoris; Z79.84 Long term (current) use of oral hypoglycemic drugs; I25.2 Old myocardial infarction; Z95.1 Presence of aortocoronary bypass graft
CPT/HCPCS: 36600; 51702; 71010; 80048; 80053; 80061; 81001; 82550; 82805; 82948; 83605; 83735; 83880; 84484; 85025; 85610; 87040; 87804; 93005; 93306; 93454; 94002; 96374; 96375; C1769; C1893; J0360; J0456; J0696; J1644; J1815; J1940; J2250; J3010; J7050; Q9967

== ENCOUNTER 2017-01-16 03:59 | Inpatient (IN) | payer MEDICARE, BC ==
[2017-01-16] VITALS (17 sets, daily range): BP systolic 146–240; BP diastolic 57–98; PULSE 69–88; RESP 15–24; TEMP 96.6–99; O2SAT 93–100
[~2017-01-16 03:59] MED LIST changes: -CLON.3T TD; -DILT60TA33 PO; -EMPA1TAB PO; -ENOX30P SQ; +FURO40TA PO; +GLIP10TA6 PO; -HYDR12.57 PO; +LEVEMIR SQ; -LIPI80TA PO; +LISI10TA3 PO; -LOTR10CA2 PO; -METO-309 PO; -METO100T9 PO; +METO25TA6 PO; +NOVOINJ3 SQ; -NYSTCRE29 TOPICAL; -PLAV75TA29 PO; +TRAZ50TA12 PO
[2017-01-16] MEDS ORDERED: MORPHINE SULFATE 4 MG/ML INJ IV PUSH ONE (04:15)
[2017-01-16] MEDS ORDERED: NITROGLYCERIN 2% OINT 1 GM PACKET TOPICAL ONE (04:15)
[2017-01-16] MEDS ORDERED: FUROSEMIDE 100 MG/10 ML VIAL IV PUSH ONE (04:15)
[2017-01-16] MEDS ORDERED: SODIUM CHLORIDE 0.9% FLUSH 5 ML FLUSH IVF PRN (04:15)
[2017-01-16 04:26] LABS: AUTOMATED NEUTROPHIL # 9.7 TH/MM3 (1.8-7.7); BASOPHIL # 0.1 TH/MM3 (0-0.2); BASOPHIL % 0.4 % (0.0-2.0); EOSINOPHIL # 0.3 TH/MM3 (0-0.4); EOSINOPHIL % 1.7 % (0.0-4.0); HEMATOCRIT 46.2 % (39.0-51.0); LYMPH % 39.3 % (9.0-44.0); LYMPHOCYTE # 7.7 TH/MM3 (1.0-4.8); MEAN CORPUSCULAR HEMOGLOBIN 28.1 PG (27.0-34.0); MEAN CORPUSCULAR HGB CONC 31.9 % (32.0-36.0); MONO % 9.3 % (0.0-8.0); NEUT % 49.3 % (16.0-70.0); PLATELET COUNT 357 TH/MM3 (150-450); RED BLOOD COUNT 5.26 MIL/MM3 (4.50-5.90); WHITE BLOOD COUNT 19.6 TH/MM3 (4.0-11.0)
[2017-01-16 04:29] LABS: HEMO FLAGS AUTO DIFF
--- NOTE | 2017-01-16 04:32 | RADHPO ---
EXAM DATE/TIME: 01/16/2017 04:19 [facility] COMPARISON: CHEST SINGLE AP, August 28, 2016, 8:55. CHEST SINGLE AP, January 06, 2017, 19:07. INDICATIONS : Short of breath. MEDICAL HISTORY : Cardiovascular disease. Hypertension SURGICAL HISTORY : None. ENCOUNTER: Initial ACUITY: 1 day PAIN SCORE: Non-responsive. LOCATION: Bilateral chest FINDINGS: Marked cardiomegaly similar to prior. Evidence of prior median sternotomy. There are patchy areas o f acinar opacity in the right lower lung. There is central engorgement of the pulmonary vascularity and cephalization of flow. Both hemidiaphragms are well delineated. CONCLUSION: Stable cardiomegaly. Increased engorgement of the central pulmonary vascularity and new cephalizatio n of flow and new acinar opacities in the right lower lung, suggestive of congestive failure. Genaro Boudreaux MD on January 16, 2017 at 4:29 Board Certified Radiologist. This report was verified electronically.
--- NOTE | 2017-01-16 04:33 | PD ---
HPI . Respiratory distress Chief Complaint: Respiratory Distress Time Seen by Provider: 04:04 Travel History International Travel<30 days: No Contact w/Intl Traveler<30days: No History of Present Illness HPI Patient drove himself to the hospital for acute respiratory distress. The history is obtained mainly from the nursing staff and the chart. The patient is not really able to speak to us currently because of severe respiratory distress. Patient was seen here on January 06 under very similar circumstances. He was found to be in flash pulmonary edema. He was treated aggressively with Lasix, nitroglycerin and BiPAP. The symptoms quickly resolved. Patient comes in to us tonight with the exact same thing. No further history is available at this time because of the acuity of the situation. PFSH Past Medical History Cancer: No Cardiovascular Problems: Yes High Cholesterol: Yes Chest Pain: Yes Congestive Heart Failure: Yes COPD: Yes Diabetes: Yes Diminished Hearing: No Endocrine: Yes Genitourinary: No Hypertension: Yes Immune Disorder: No Musculoskeletal: No Neurologic: No Psychiatric: No Reproductive: No Respiratory: Yes Myocardial Infarction: Yes Pneumonia: Yes Past Surgical History Cardiac Surgery: Yes (4 VESSEL BYPASS/L CAROTID ENDARECTOMY) Social History Alcohol Use: No Tobacco Use: No (1 PPD) Substance Use: No Allergies-Medications (Allergen,Severity, Reaction): Coded Allergies: No Known Allergies (Unverified , 01/16/17) Reported Meds & Prescriptions Reported Meds & Active Scripts Active Lisinopril 10 Mg Tab 10 Mg PO BID Furosemide 40 Mg Tab 40 Mg PO BID@09,18 Quetiapine (Quetiapine Fumarate) 25 Mg Tab 12.5 Mg PO BID 30 Days Prevacid Solutab ODT (Lansoprazole) 30 Mg Tab 30 Mg PO DAILY 30 Days Imdur (Isosorbide Mononitrate) 30 Mg Tab 30 Mg PO DAILY@07 30 Days Hydralazine (Hydralazine HCl) 50 Mg Tab 100 Mg PO Q8HR 30 Days Aspirin EC (Aspirin) 81 Mg Tabdr 81 Mg PO DAILY 30 Days Norvasc (Amlodipine Besylate) 10 Mg Tab 10 Mg PO DAILY 30 Days Reported Novolog Flexpen Inj (Insulin Aspart) 300 Unit/3 Ml Pen 1 Units SQ Levemir Inj (Insulin Detemir) 1,000 unit/ 10 ML Vial 10 Units SQ HS Do not mix with any other Insulin. Trazodone (Trazodone HCl) 50 Mg Tab 50 Mg PO HS Glipizide 10 Mg Tab 10 Mg PO DAILY Take 30 minutes before a meal Metoprolol Succinate ER 24 HR (Metoprolol Succinate) 25 Mg Tab 25 Mg PO BID PRN Clopidogrel (Clopidogrel Bisulfate) 75 Mg Tab 75 Mg PO DAILY Sertraline (Sertraline HCl) 100 Mg Tab 100 Mg PO DAILY Gabapentin 100 Mg Cap 100 Mg PO TID Atorvastatin (Atorvastatin Calcium) 80 Mg Tab 80 Mg PO DAILY Review of Systems ROS Limitations: Clinical Condition Respiratory: Positive: Shortness of Breath Physical Exam Narrative GENERAL: Patient is pale and diaphoretic and in obvious distress SKIN: Pale and diaphoretic HEAD: Atraumatic. Normocephalic. EYES: Pupils equal and round. ENT: No nasal bleeding or discharge. Mucous membranes pink and moist. NECK: Trachea midline. CARDIOVASCULAR: Regular rate and rhythm. RESPIRATORY: Tachypneic. Diffuse rales. GASTROINTESTINAL: Abdomen soft, non-tender, nondistended. MUSCULOSKELETAL: No obvious deformities. 1-2+ pretibial pitting edema. NEUROLOGICAL: Awake and alert. No obvious cranial nerve deficits. Motor grossly within normal limits. Difficulty speaking secondary to shortness of breath. PSYCHIATRIC: Unable to assess Data Data Last Documented VS Vital Signs Date Time Temp Pulse Resp B/P Pulse Ox O2 Delivery O2 Flow Rate FiO2 01/16/17 05:10 97.6 73 152/77 95 BiPAP 40 01/16/17 04:10 3 Orders Furosemide Inj (Lasix Inj) (01/16/17 04:15) Morphine Inj (Morphine Inj) (01/16/17 04:15) Nitroglycerin 2% Oint (Nitroglycerin 2% (01/16/17 04:15) Resp Bipap / Cpap Non Invas Vt (01/16/17 ) Complete Blood Count With Diff (01/16/17 04:06) Comprehensive Metabolic Panel (01/16/17 04:06) Ckmb (Isoenzyme) Profile (01/16/17 04:06) Troponin I (01/16/17 04:06) Arterial Blood Gas (Abg) (01/16/17 04:06) Iv Access Insert/Monitor (01/16/17 04:06) Electrocardiogram (01/16/17 04:06) Ecg Monitoring (01/16/17 04:06) Oximetry (01/16/17 04:06) Oxygen Administration (01/16/17 04:06) Chest, Single Ap (01/16/17 04:06) Sodium Chloride 0.9% Flush (Ns Flush) (01/16/17 04:15) Urinary Catheter Management JOANNA.Q8H (01/16/17 04:33) Admit Order (Ed Use Only) (01/16/17 05:21) Labs Laboratory Tests Test 01/16/17 01/16/17 04:10 04:45 White Blood Count 19.6 TH/MM3 Red Blood Count 5.26 MIL/MM3 Hemoglobin 14.8 GM/DL Hematocrit 46.2 % Mean Corpuscular Volume 88.0 FL Mean Corpuscular Hemoglobin 28.1 PG Mean Corpuscular Hemoglobin 31.9 % Concent Red Cell Distribution Width 15.0 % Platelet Count 357 TH/MM3 Mean Platelet Volume 8.6 FL Neutrophils (%) (Auto) 49.3 % Lymphocytes (%) (Auto) 39.3 % Monocytes (%) (Auto) 9.3 % Eosinophils (%) (Auto) 1.7 % Basophils (%) (Auto) 0.4 % Neutrophils # (Auto) 9.7 TH/MM3 Lymphocytes # (Auto) 7.7 TH/MM3 Monocytes # (Auto) 1.8 TH/MM3 Eosinophils # (Auto) 0.3 TH/MM3 Basophils # (Auto) 0.1 TH/MM3 CBC Comment AUTO DIFF Differential Total Cells 100 Counted Neutrophils % (Manual) 40 % Lymphocytes % 31 % Monocytes % 11 % Neutrophils # (Manual) 7.8 TH/MM3 Differential Comment FINAL DIFF MANUAL Atypical Lymphocytes 18 % Platelet Estimate NORMAL Platelet Morphology Comment NORMAL Red Cell Morphology Comment NORMAL Sodium Level 149 MEQ/L Potassium Level 3.9 MEQ/L Chloride Level 109 MEQ/L Carbon Dioxide Level 25.6 MEQ/L Anion Gap 14 MEQ/L Blood Urea Nitrogen 25 MG/DL Creatinine 1.80 MG/DL Estimat Glomerular Filtration 38 ML/MIN Rate Random Glucose 169 MG/DL Calcium Level 8.7 MG/DL Total Bilirubin 0.2 MG/DL Aspartate Amino Transf 19 U/L (AST/SGOT) Alanine Aminotransferase 30 U/L (ALT/SGPT) Alkaline Phosphatase 108 U/L Total Creatine Kinase 54 U/L Troponin I 0.04 NG/ML Total Protein 7.9 GM/DL Albumin 3.1 GM/DL Blood Gas Puncture Site RT BRACHIAL Blood Gas Patient Temperature 98.6 Blood Gas HCO3 28 mmol/L Blood Gas Base Excess 3.1 mmol/L Blood Gas Oxygen Saturation 96 % Arterial Blood pH 7.36 Arterial Blood Partial 51 mmHG Pressure CO2 Arterial Blood Partial 396 mmHG Pressure O2 Arterial Blood Oxygen Content 18.8 Vol % Arterial Blood 3.0 % Carboxyhemoglobin Arterial Blood Methemoglobin 1.3 % Blood Gas Hemoglobin 13.3 G/DL Oxygen Delivery Device BIPAP Blood Gas Ventilator Setting IPAP 15/ EPAP 5 Blood Gas Inspired Oxygen 100 % MDM Medical Decision Making Medical Screen Exam Complete: Yes Emergency Medical Condition: Yes Medical Record Reviewed: Yes (patient was admitted on 01/06 with pulmonary edema. He had a cardiac catheter that showed patent grafts. He had an echo that showed an ejection fraction of 35%.) Interpretation(s) EKG shows a sinus rhythm. He has left ventricular hypertrophy. Differential Diagnosis Differential diagnosis of dyspnea includes but is not limited to congestive heart failure, pneumonia, wheezing, pneumothorax, pulmonary embolism Narrative Course Patient presents in respiratory distress and acute pulmonary edema by exam. Patient has been placed on BiPAP. He has been given morphine and Lasix. Nitro paste has been applied. If he does not rapidly improve, he will need to be intubated. 5 AM The patient has been monitored continuously. His color has clinically improved. He is no longer diaphoretic. Sats are 100%. Blood pressure has come down nicely. CBC & BMP Diagram 01/16/17 04:10 His cardiac enzymes are negative. I did not order a BNP as his diagnosis was obvious. Chest x-ray has been independently viewed by me. He is in pulmonary edema. Critical Care Narrative Aggregate critical care time was 45 minutes. Time to perform other separately billable procedures was not included in the critical care time. My time did not include minutes spent treating any other patients simultaneously or on activities that did not directly contribute to the patient's treatment. The services I provided to this patient were to treat and/or prevent clinically significant deterioration due to acute respiratory distress I provided critical care services requiring my management, as noted below: Chart data review, documentation time, medication orders and management, vital sign assessments/reviewing monitor data, ordering and reviewing lab tests, ordering and interpreting/reviewing x-rays and diagnostic studies, care of the patient and discussion of the patient with the admitting physicians Diagnosis Primary Impression: Acute pulmonary edema Additional Impression: ARF (acute renal failure) Qualified Code: N17.9 - Acute renal failure, unspecified acute renal failure type Admitting Information Admitting Physician Requests: Admit Condition: Kristen Leyva MD Jan 16, 2017 04:33
[2017-01-16 04:37] LABS: CHLORIDE 109 MEQ/L (98-107); POTASSIUM 3.9 MEQ/L (3.5-5.1); SODIUM (NA) 149 MEQ/L (136-145)
[2017-01-16 04:41] LABS: ANION GAP 14 MEQ/L (5-15); BICARBONATE 25.6 MEQ/L (21.0-32.0); BLOOD UREA NITROGEN 25 MG/DL (7-18)
[2017-01-16 04:44] LABS: ALT (GPT) 30 U/L (12-78); AST (GOT) 19 U/L (15-37); GLOMERULAR FILTRATION RATE 38 ML/MIN (>89)
[2017-01-16 04:46] LABS: TOTAL BILIRUBIN ADULT 0.2 MG/DL (0.2-1.0)
[2017-01-16 04:47] LABS: ALKALINE PHOSPHATASE 108 U/L (45-117)
[2017-01-16 04:51] LABS: CREATINE KINASE 54 U/L (39-308)
[2017-01-16 05:02] LABS: BLOOD GAS BASE EXCESS 3.1 mmol/L (-2-2); BLOOD GAS HCO3 28 mmol/L (22-26); BLOOD GAS METHEMOGLOBIN 1.3 % (0-2); BLOOD GAS O2 HGB SATURATION 96 % (90-100); BLOOD GAS OXYGEN CONTENT 18.8 Vol % (12.0-20.0); BLOOD GAS PCO2 51 mmHG (38-42); BLOOD GAS PO2 396 mmHG (61-120); BLOOD GAS TOTAL HGB 13.3 G/DL (12.0-16.0); TEMP CORR TO 98.6
[2017-01-16 05:03] LABS: CRITICAL VALUE YES; DRAW SITE RT BRACHIAL; FIO2 100 %; NUMBER OF ARTERIAL PUNCTURES 1; OXYGEN DEVICE BIPAP; STAT YES; VENT SETTINGS IPAP 15/ EPAP 5
[2017-01-16 05:13] LABS: ATYPICAL LYMPHOCYTES 18 % (0-0); NEUTROPHIL # MANUAL DIFF 7.8 TH/MM3 (1.8-7.7); POLYS (SEG NEUTROPHILS) 40 % (16-70); WBC DIFF SAMPLE 100
[2017-01-16 05:14] LABS: PLATELET ESTIMATE SMEAR NORMAL (NORMAL); PLATELET MORPHOLOGY NORMAL (NORMAL); SCAN/DIFF FINAL DIFF MANUAL
[2017-01-16] MEDS ORDERED: ACETAMINOPHEN/HYDROcodone 325 MG/10 MG TAB PO PRN (05:30)
[2017-01-16] MEDS ORDERED: ACETAMINOPHEN 325 MG TAB PO PRN (05:30)
[2017-01-16] MEDS ORDERED: GLUCAGON 1 MG/ML VIAL OTHER PRN (05:30)
[2017-01-16] MEDS ORDERED: RESP: ALBUTEROL 2.5 MG/IPRATROPIUM 0.5 MG NEB (PRN) NEB (05:30)
[2017-01-16] MEDS ORDERED: ONDANSETRON HCL 4 MG/2 ML VIAL IVP PRN (05:30)
[2017-01-16] MEDS ORDERED: BISACODYL 10 MG SUPP PR PRN (05:30)
[2017-01-16] MEDS ORDERED: DEXTROSE 50% IN WATER 50 ML VIAL(D50) IV PUSH PRN (05:30)
[2017-01-16] MEDS ORDERED: ACETAMINOPHEN/HYDROcodone 325 MG/5 MG TAB PO PRN (05:30)
[2017-01-16] MEDS ORDERED: METOPROLOL SUCCINATE 25 MG EXTENDED RELEASE TAB PO PRN (05:30)
[2017-01-16] MEDS ORDERED: SODIUM CHLORIDE 0.9% FLUSH 5 ML FLUSH FLUSH PRN (05:30)
[2017-01-16] MEDS ORDERED: PILL SPLITTER OTHER PRN (05:45)
[2017-01-16 05:46] LABS: BLOOD, URINE NEG (NEG); GLUCOSE,URINE NEG (NEG); KETONE, URINE NEG (NEG); NITRITE,URINE NEG (NEG); PH, URINE 7.5 (5.0-8.5)
[2017-01-16 05:58] LABS: METHOD OF COLLECTION CATH
[2017-01-16 05:59] LABS: COMMENT (UR) CULT NOT INDICATED; CULTURE IF INDICATED CULT NOT INDICATED; RBC, URINE 0-3 /hpf (0-3); URINE COLOR STRAW (YELLW/STRAW); WBC, URINE 0-2 /hpf (0-5)
[2017-01-16] MEDS: hydrALAZINE HCL 50 MG TAB PO SCH ×3 (06:10→22:41)
[2017-01-16] MEDS: ISOSORBIDE MONONITRATE 30 MG TAB PO SCH (07:28)
[2017-01-16] MEDS: INSULIN ASPART SUPPLEMENTAL SCALE SQ SCH ×4 (07:28→22:42)
[2017-01-16] MEDS: glipiZIDE 10 MG TAB PO SCH (07:42)
[2017-01-16] MEDS ORDERED: ATORVASTATIN 80 MG TAB PO SCH (09:00)
[2017-01-16] MEDS: SODIUM CHLORIDE 0.9% FLUSH 5 ML FLUSH FLUSH SCH ×2 (09:22→22:41)
[2017-01-16] MEDS: FUROSEMIDE 40 MG TAB PO SCH ×2 (09:55→17:09)
[2017-01-16] MEDS: ASPIRIN EC 81 MG TABEC PO SCH (09:55)
[2017-01-16] MEDS: SERTRALINE HCL 100 MG TAB PO SCH (09:55)
[2017-01-16] MEDS: QUEtiapine FUMARATE 25 MG TAB PO SCH ×2 (09:55→22:41)
[2017-01-16] MEDS: ATORVASTATIN 40 MG TAB PO SCH (09:56)
[2017-01-16] MEDS: CLOPIDOGREL 75 MG TAB PO SCH (09:56)
--- NOTE | 2017-01-16 12:06 | HHI.HP ---
HPI Service [facility] Hospitalists Primary Care Physician Sukumar Marquez MD Admission Diagnosis acute pulmonary edema Diagnoses: Chief Complaint: Shortness of breath Diaphoresis Travel History International Travel<30 Days: No Contact w/Intl Traveler <30 Da: No Traveled to Known Affected Are: No History of Present Illness This is a 67-year-old male with past medical history of CAD with previous CABG, hypertension, dyslipidemia and diabetes. COPD with continued tobacco use and history of respiratory failure secondary to bilateral pneumonia last August and a recent admission earlier this month for flash pulmonary edema who presents to [facility] ED with complaints of severe shortness of breath 1 day. Patient states that symptoms began suddenly late last night with severe shortness of breath and associated diaphoresis. Patient denies any associated chest pain or palpitations. He denies any recent illness including fever chills nausea or vomiting. He denies any swelling in his legs or feet but states his abdomen appears to be getting larger. He denies any weight gain. Patient had similar circumstance for which he was admitted on January 06 for flash pulmonary edema. At that time, he was treated aggressively with Lasix and nitroglycerin and BiPAP with symptomatic resolution. However, the patient states that he was discharged from the hospital without a water pill. He also states that he was given a LifeVest and was told to follow-up in 3 months with sales order processor Dr. Mckay but he has no contact information for that physician. He is not wearing the LifeVest because he states that it makes the shortness of breath worse. He does not use oxygen at home. In the ED, he was noted to be in acute respiratory distress and hypertensive urgency with a BP of 240/98. He was given Lasix and placed on BiPAP. He is much improved and is actually requesting if he can go home this afternoon. His O2 sats are 100%. Chest x-ray shows marked cardiomegaly, patchy areas of opacity in the right lower lung and increased engorgement central pulmonary vascularity suggestive of acute congestive heart failure. Review of Systems Constitutional: COMPLAINS OF: Diaphoretic episodes (with episode of severe shortness of breath leading to this hospitalization), DENIES: Fatigue, Fever, Weight loss, Chills, Dizziness Endocrine: DENIES: Polydipsia, Polyuria Eyes: DENIES: Blurred vision, Eye pain Ears, nose, mouth, throat: DENIES: Hearing loss, Throat pain Respiratory: COMPLAINS OF: Cough, Shortness of breath (as stated in history of present illness), DENIES: Hemoptysis, Sputum production Cardiovascular: COMPLAINS OF: Dyspnea on Exertion, DENIES: Chest pain, Palpitations, Lower Extremity Edema, Orthopnea Gastrointestinal: DENIES: Abdominal pain, Black stools, Bloody stools, Diarrhea , Vomiting Genitourinary: DENIES: Urinary frequency, Urgency, Hematuria, Dysuria Musculoskeletal: DENIES: Muscle aches, Back pain, Neck pain Integumentary: DENIES: Rash Hematologic/lymphatic: DENIES: Lymphadenopathy Immunologic/allergic: DENIES: Urticaria Neurologic: DENIES: Headache, Localized weakness, Paresthesias Psychiatric: DENIES: Confusion, Mood changes, Depression Past Family Social History Past Medical History CAD, previous CABG Hypertension Hyperlipidemia Diabetes Chronic obstructive pulmonary disease with ongoing tobacco use CHF Past Surgical History CABG 4 vessels Left carotid endarterectomy Reported Medications Lisinopril 10 Mg Tab 10 Mg PO BID Furosemide 40 Mg Tab 40 Mg PO BID@09,18 Quetiapine (Quetiapine Fumarate) 25 Mg Tab 12.5 Mg PO BID 30 Days Prevacid Solutab ODT (Lansoprazole) 30 Mg Tab 30 Mg PO DAILY 30 Days Imdur (Isosorbide Mononitrate) 30 Mg Tab 30 Mg PO DAILY@07 30 Days Hydralazine (Hydralazine HCl) 50 Mg Tab 100 Mg PO Q8HR 30 Days Aspirin EC (Aspirin) 81 Mg Tabdr 81 Mg PO DAILY 30 Days Norvasc (Amlodipine Besylate) 10 Mg Tab 10 Mg PO DAILY 30 Days Novolog Flexpen Inj (Insulin Aspart) 300 Unit/3 Ml Pen 1 Units SQ Levemir Inj (Insulin Detemir) 1,000 unit/ 10 ML Vial 10 Units SQ HS Do not mix with any other Insulin. Trazodone (Trazodone HCl) 50 Mg Tab 50 Mg PO HS Glipizide 10 Mg Tab 10 Mg PO DAILY Take 30 minutes before a meal Metoprolol Succinate ER 24 HR (Metoprolol Succinate) 25 Mg Tab 25 Mg PO BID PRN Clopidogrel (Clopidogrel Bisulfate) 75 Mg Tab 75 Mg PO DAILY Sertraline (Sertraline HCl) 100 Mg Tab 100 Mg PO DAILY Gabapentin 100 Mg Cap 100 Mg PO TID Atorvastatin (Atorvastatin Calcium) 80 Mg Tab 80 Mg PO DAILY Allergies: Coded Allergies: No Known Allergies (Unverified , 01/16/17) Active Ordered Medications Current Medications Medications (Trade) Dose Ordered Sig/Teresa Route Start Time Stop Time Status Last Admin (D50w (Vial) Inj) 25 ml UNSCH PRN IV PUSH 01/16/17 05:30 (Glucagon Inj) 1 mg UNSCH PRN OTHER 01/16/17 05:30 (NS Flush) 2 ml UNSCH PRN FLUSH 01/16/17 05:30 (NS Flush) 2 ml BID FLUSH 01/16/17 09:00 01/16/17 09:22 (Zofran Inj) 4 mg Q6H PRN IVP 01/16/17 05:30 (Dulcolax Supp) 10 mg DAILY PRN MN 01/16/17 05:30 (Tylenol) 650 mg Q6H PRN PO 01/16/17 05:30 ([place] 5-325 Mg) 1 tab Q4H PRN PO 01/16/17 05:30 ([place] 10-325 Mg) 1 tab Q4H PRN PO 01/16/17 05:30 (Norvasc) 10 mg DAILY PO 01/16/17 09:00 01/16/17 09:55 (Ecotrin Ec) 81 mg DAILY PO 01/16/17 09:00 01/16/17 09:55 (Plavix) 75 mg DAILY PO 01/16/17 09:00 01/16/17 09:56 (Lasix) 40 mg BID@09,18 PO 01/16/17 09:00 01/16/17 09:55 (Glucotrol) 10 mg DAILYAC PO 01/16/17 08:00 01/16/17 07:42 (Apresoline) 100 mg Q8HR PO 01/16/17 06:00 01/16/17 06:10 (Levemir Inj) 10 units HS SQ 01/16/17 21:00 (Imdur) 30 mg DAILY@07 PO 01/16/17 07:00 01/16/17 07:28 (Toprol Xl) 25 mg BID PRN PO 01/16/17 05:30 (SEROquel) 12.5 mg BID PO 01/16/17 09:00 01/16/17 09:55 (Zoloft) 100 mg DAILY PO 01/16/17 09:00 01/16/17 09:55 (Desyrel) 50 mg HS PO 01/16/17 21:00 (Pill Splitter) 1 ea UNSCH PRN OTHER 01/16/17 05:45 (Lipitor) 80 mg DAILY PO 01/16/17 10:00 01/16/17 09:56 Family History Significant for father having heart attack in his early 60s, stroke, diabetes Mother lived to an old age Uncle, Heart disease Social History Patient has a history of heavy tobacco use and continues to smoke a pack a day, smoking since 19 years of age Patient denies any alcohol or illicit drug use Physical Exam Vital Signs Vital Signs Date Time Temp Pulse Resp B/P Pulse Ox O2 Delivery O2 Flow Rate FiO2 01/16/17 10:55 71 16 166/70 95 Nasal Cannula 3 01/16/17 07:41 94 Nasal Cannula 4.00 01/16/17 07:15 99.0 72 16 146/64 100 Nasal Cannula 4 01/16/17 07:15 72 16 93 Nasal Cannula 4 01/16/17 06:24 94 Nasal Cannula 4 01/16/17 06:20 94 Nasal Cannula 4.00 01/16/17 06:15 69 24 153/57 97 BiPAP 40 01/16/17 05:10 97.6 73 152/77 95 BiPAP 40 01/16/17 05:00 100 40 01/16/17 04:49 73 179/84 100 BiPAP 01/16/17 04:39 BiPAP 01/16/17 04:26 88 240/98 100 01/16/17 04:23 100 BiPAP 100 01/16/17 04:10 99 100 01/16/17 04:10 Nasal Cannula 3 Physical Exam GENERAL: This is a well-nourished, well-developed patient, in no apparent distress. Sleeping but easily arousable. SKIN: No rashes, ecchymoses or lesions. Cool and dry. HEAD: Atraumatic. Normocephalic. No temporal or scalp tenderness. EYES: Pupils equal round and reactive. Extraocular motions intact. No scleral icterus. No injection or drainage. ENT: Nose without bleeding, purulent drainage or septal hematoma. Throat without erythema, tonsillar hypertrophy or exudate. Uvula midline. Airway patent. NECK: Trachea midline. No lymphadenopathy. Supple, nontender, no meningeal signs. CARDIOVASCULAR: Regular rate and rhythm without gallops, or rubs. Murmur present. RESPIRATORY: Coarse BS on right. Bibasilar crackles appreciated on exam. GASTROINTESTINAL: Abdomen soft, non-tender, nondistended. No hepato-splenomegaly , or palpable masses. No guarding. MUSCULOSKELETAL: Extremities without clubbing, cyanosis, or edema. No joint tenderness, effusion, or edema noted. No calf tenderness. NEUROLOGICAL: Awake and alert. Cranial nerves II through XII intact. Motor and sensory grossly within normal limits. Five out of 5 muscle strength in all muscle groups. Normal speech. Laboratory Laboratory Tests Test 01/16/17 01/16/17 01/16/17 04:10 04:45 05:29 White Blood Count 19.6 Red Blood Count 5.26 Hemoglobin 14.8 Hematocrit 46.2 Mean Corpuscular Volume 88.0 Mean Corpuscular Hemoglobin 28.1 Mean Corpuscular Hemoglobin 31.9 Concent Red Cell Distribution Width 15.0 Platelet Count 357 Mean Platelet Volume 8.6 Neutrophils (%) (Auto) 49.3 Lymphocytes (%) (Auto) 39.3 Monocytes (%) (Auto) 9.3 Eosinophils (%) (Auto) 1.7 Basophils (%) (Auto) 0.4 Neutrophils # (Auto) 9.7 Lymphocytes # (Auto) 7.7 Monocytes # (Auto) 1.8 Eosinophils # (Auto) 0.3 Basophils # (Auto) 0.1 CBC Comment AUTO DIFF Differential Total Cells 100 Counted Neutrophils % (Manual) 40 Lymphocytes % 31 Monocytes % 11 Neutrophils # (Manual) 7.8 Differential Comment FINAL DIFF MANUAL Atypical Lymphocytes 18 Platelet Estimate NORMAL Platelet Morphology Comment NORMAL Red Cell Morphology Comment NORMAL Sodium Level 149 Potassium Level 3.9 Chloride Level 109 Carbon Dioxide Level 25.6 Anion Gap 14 Blood Urea Nitrogen 25 Creatinine 1.80 Estimat Glomerular Filtration 38 Rate Random Glucose 169 Calcium Level 8.7 Total Bilirubin 0.2 Aspartate Amino Transf 19 (AST/SGOT) Alanine Aminotransferase 30 (ALT/SGPT) Alkaline Phosphatase 108 Total Creatine Kinase 54 Troponin I 0.04 Total Protein 7.9 Albumin 3.1 Blood Gas Puncture Site RT BRACHIAL Blood Gas Patient Temperature 98.6 Blood Gas HCO3 28 Blood Gas Base Excess 3.1 Blood Gas Oxygen Saturation 96 Arterial Blood pH 7.36 Arterial Blood Partial 51 Pressure CO2 Arterial Blood Partial 396 Pressure O2 Arterial Blood Oxygen Content 18.8 Arterial Blood 3.0 Carboxyhemoglobin Arterial Blood Methemoglobin 1.3 Blood Gas Hemoglobin 13.3 Oxygen Delivery Device BIPAP Blood Gas Ventilator Setting IPAP 15/ EPAP 5 Blood Gas Inspired Oxygen 100 Urine Collection Type CATH Urine Color STRAW Urine Turbidity CLEAR Urine pH 7.5 Urine Specific [place] 1.013 Urine Protein 100 Urine Glucose (UA) NEG Urine Ketones NEG Urine Occult Blood NEG Urine Nitrite NEG Urine Bilirubin NEG Urine Leukocyte Esterase NEG Urine RBC 0-3 Urine WBC 0-2 Microscopic Urinalysis Comment CULT NOT INDICATED Result Diagram: 01/16/1740901/16/17409 Assessment and Plan Assessment and Plan 67-year-old male with past medical history of CAD with previous CABG, hypertension, dyslipidemia and diabetes. COPD with continued tobacco use and history of respiratory failure secondary to bilateral pneumonia last August and a recent admission earlier this month for flash pulmonary edema who presents to [facility] ED with complaints of severe shortness of breath and diaphoresis 1 day. Acute respiratory distress secondary to CHF exacerbation in presence of hypertensive urgency - Patient will be admitted - Chest x-ray personally interpreted as acute congestive heart failure - Much improved - Continue with Lasix - strict I&Os - daily wts - NA/fluid restrictions - Monitor electrolytes - Supplemental oxygen Hypertensive urgency - Much improved - Last BP measurement 150/72 - Resume home medication - Monitor BP and adjust treatment as indicated Leukocytosis - Likely reactive - Repeat labs shows resolution ODELL - likely due to intravascular depletion - Avoid nephrotoxic agents - repeat lab studies show improvement 1.80 to 1.40 - Baseline around 1.10 - Repeat labs in a.m. to monitor - Will continue patient's home lisinopril dose for now but may need to discontinue his creatinine function worsens Hypernatremia - likely due to intravascular depletion - Repeat labs shows resolution CAD and CHF - Resume home medications - Last echocardiogram 01/07/17 - mild LVH, severely reduced systolic function with EF 30-35% - Aspirin daily - Monitor BP - resume use of LifeVest following discharge and keep scheduled follow-up appointment with cardiology Diabetes - Continue home glipizide - Accu-Cheks - Insulin sliding scale Ongoing tobacco use with complaints of shortness of breath - Cessation counseling - Suspect underlying/undiagnosed COPD - Home oxygen walk test prior to discharge Dyslipidemia - Resume patient's home statin dose DVT prophylaxis SCD/JUNI hose Written by Cassie Vickers PA-C acting as scribe for Dr. Early on 01/16/17 at 15:13. Attending Statement The exam, history, and the medical decision-making described in the above note were completed with my assistance as the dictating practitioner. I attest that I had a [id number] encounter with the patient on the same day, and personally performed all of the history, exam, or medical decision making. I reviewed and agree with the plan. Cassie Vickers Jan 16, 2017 12:06 Valorie Early MD Jan 16, 2017 17:59
[2017-01-16] MEDS: GABAPENTIN 100 MG CAP PO SCH ×2 (12:19→17:09)
[2017-01-16 14:38] LABS: AUTOMATED NEUTROPHIL # 4.9 TH/MM3 (1.8-7.7); BASOPHIL # 0.1 TH/MM3 (0-0.2); BASOPHIL % 0.7 % (0.0-2.0); EOSINOPHIL # 0.1 TH/MM3 (0-0.4); EOSINOPHIL % 1.2 % (0.0-4.0); HEMATOCRIT 36.3 % (39.0-51.0); HEMO FLAGS DIFF FINAL; LYMPH % 20.5 % (9.0-44.0); LYMPHOCYTE # 1.5 TH/MM3 (1.0-4.8); MEAN CELL VOLUME 85.4 FL (80.0-100.0); MEAN CORPUSCULAR HEMOGLOBIN 28.5 PG (27.0-34.0); MEAN CORPUSCULAR HGB CONC 33.3 % (32.0-36.0); MONO % 9.1 % (0.0-8.0); NEUT % 68.5 % (16.0-70.0); PLATELET COUNT 221 TH/MM3 (150-450); RED BLOOD COUNT 4.25 MIL/MM3 (4.50-5.90); RED CELL DISTRIBUTION WIDTH 14.4 % (11.6-17.2); WHITE BLOOD COUNT 7.3 TH/MM3 (4.0-11.0)
[2017-01-16 14:53] LABS: POTASSIUM 3.6 MEQ/L (3.5-5.1)
[2017-01-16 14:57] LABS: BICARBONATE 28.9 MEQ/L (21.0-32.0)
--- NOTE | 2017-01-16 21:29 | EKG ---
Date Performed: 01/16/2017 Time Performed: 04:46:22 PTAGE: 67 years EKG: Sinus rhythm . Left axis deviation IV conduction defect QRS changes V3/V4 may be due to LVH but cannot rule out an terior infarct Left ventricular hypertrophy Lateral ST-T changes are probably due to ventricular hype rtrophy Since previous tracing 01/07/2017,T-wave changes anterolateraly in V5/V6 is somewhat improved. Otherwise no significant change. Abnormal ECG PREVIOUS TRACING : 01/07/2017 07.56 DOCTOR: Sukumar Pimentel Interpretating Date/Time 01/16/2017 21:28:26
[2017-01-16] MEDS: traZODone HCL 50 MG TAB PO SCH (22:41)
[2017-01-16] MEDS: INSULIN DETEMIR 100 UNITS/ML VIAL SQ SCH (22:42)
[2017-01-16] MEDS: LISINOPRIL 10 MG TAB PO SCH (22:42)
[2017-01-17] VITALS (9 sets, daily range): BP systolic 141–176; BP diastolic 82–97; PULSE 75–85; RESP 18–20; TEMP 97.7–99.1; O2SAT 96–98
[2017-01-17 06:02] LABS: AUTOMATED NEUTROPHIL # 6.4 TH/MM3 (1.8-7.7); BASOPHIL % 0.4 % (0.0-2.0); EOSINOPHIL # 0.1 TH/MM3 (0-0.4); EOSINOPHIL % 1.5 % (0.0-4.0); HEMATOCRIT 42.6 % (39.0-51.0); HEMO FLAGS DIFF FINAL; LYMPH % 17.5 % (9.0-44.0); LYMPHOCYTE # 1.5 TH/MM3 (1.0-4.8); MEAN CORPUSCULAR HEMOGLOBIN 27.4 PG (27.0-34.0); MEAN CORPUSCULAR HGB CONC 31.9 % (32.0-36.0); MONO % 6.8 % (0.0-8.0); NEUT % 73.8 % (16.0-70.0); PLATELET COUNT 260 TH/MM3 (150-450); RED BLOOD COUNT 4.96 MIL/MM3 (4.50-5.90); RED CELL DISTRIBUTION WIDTH 14.4 % (11.6-17.2); WHITE BLOOD COUNT 8.6 TH/MM3 (4.0-11.0)
[2017-01-17 06:13] LABS: CHLORIDE 107 MEQ/L (98-107); POTASSIUM 3.8 MEQ/L (3.5-5.1); SODIUM (NA) 144 MEQ/L (136-145)
[2017-01-17 06:16] LABS: ANION GAP 8 MEQ/L (5-15); BICARBONATE 28.9 MEQ/L (21.0-32.0)
[2017-01-17] MEDS: INSULIN ASPART SUPPLEMENTAL SCALE SQ SCH ×4 (06:17→21:17)
[2017-01-17] MEDS: hydrALAZINE HCL 50 MG TAB PO SCH ×3 (06:21→21:13)
[2017-01-17] MEDS: ISOSORBIDE MONONITRATE 30 MG TAB PO SCH (06:21)
[2017-01-17 06:58] LABS: ALKALINE PHOSPHATASE 87 U/L (45-117); ALT (GPT) 25 U/L (12-78); AST (GOT) 12 U/L (15-37); BLOOD UREA NITROGEN 22 MG/DL (7-18); GLOMERULAR FILTRATION RATE 67 ML/MIN (>89); TOTAL BILIRUBIN ADULT 0.4 MG/DL (0.2-1.0)
[2017-01-17] MEDS: glipiZIDE 10 MG TAB PO SCH (08:27)
[2017-01-17] MEDS: GABAPENTIN 100 MG CAP PO SCH ×3 (08:27→17:12)
[2017-01-17] MEDS: FUROSEMIDE 40 MG TAB PO SCH ×2 (08:27→17:12)
[2017-01-17] MEDS: ATORVASTATIN 40 MG TAB PO SCH (08:28)
[2017-01-17] MEDS: QUEtiapine FUMARATE 25 MG TAB PO SCH ×2 (08:28→21:14)
[2017-01-17] MEDS: ASPIRIN EC 81 MG TABEC PO SCH (08:28)
[2017-01-17] MEDS: SERTRALINE HCL 100 MG TAB PO SCH (08:28)
[2017-01-17] MEDS: LISINOPRIL 10 MG TAB PO SCH ×2 (08:28→21:15)
[2017-01-17] MEDS: CLOPIDOGREL 75 MG TAB PO SCH (08:28)
[2017-01-17] MEDS: SODIUM CHLORIDE 0.9% FLUSH 5 ML FLUSH FLUSH SCH ×2 (08:29→21:15)
--- NOTE | 2017-01-17 14:29 | HHI.PR ---
Subjective Remarks Follow-up respiratory distress/hypertensive emergency 01/17/17-patient seen and examined, reports some improvement of shortness of breath. Currently afebrile and denies any chest pain Objective Vitals Vital Signs Date Time Temp Pulse Resp B/P Pulse Ox O2 Delivery O2 Flow Rate FiO2 01/17/17 12:00 98.4 80 20 150/84 97 01/17/17 08:32 2.00 01/17/17 08:01 96 Nasal Cannula 2.00 01/17/17 08:00 99.1 85 20 146/86 96 01/17/17 04:00 98.8 75 18 158/90 96 01/17/17 00:00 97.7 78 18 176/97 97 01/16/17 20:52 96 Nasal Cannula 2.00 01/16/17 20:01 76 01/16/17 20:00 97.9 73 18 166/91 95 01/16/17 16:57 94 Nasal Cannula 2.00 01/16/17 16:50 97 Nasal Cannula 4.00 01/16/17 16:00 96.6 69 20 153/80 97 01/16/17 14:41 97.8 72 15 150/72 I/O 01/16/17 01/16/17 01/16/17 01/17/17 01/17/17 01/17/17 07:00 15:00 23:00 07:00 15:00 23:00 Intake Total 0 ml 240 ml Output Total 2700 ml 2600 ml 1800 ml Balance -2700 ml -2600 ml 0 ml -1560 ml Intake Oral 240 ml IV Total 0 ml 0 ml Output Urine Total 2700 ml 2600 ml 1800 ml # Voids 0 3 # Bowel Movements 1 Result Diagram: 01/17/17 0537 01/17/17 0537 Imaging Last Impressions Chest X-Ray 01/16/17 0406 Signed Impressions: Service Date/Time: Monday, January 16, 2017 04:19 - CONCLUSION: Stable cardiomegaly. Increased engorgement of the central pulmonary vascularity and new cephalization of flow and new acinar opacities in the right lower lung, suggestive of congestive failure. Genaro Boudreaux MD Objective Remarks GENERAL: NAD SKIN: Warm and dry. HEAD: Normocephalic. EYES: No scleral icterus. No injection or drainage. NECK: Supple, trachea midline. No JVD or lymphadenopathy. CARDIOVASCULAR: Regular rate and rhythm without murmurs, gallops, or rubs. RESPIRATORY: Breath sounds equal bilaterally. No accessory muscle use. GASTROINTESTINAL: Abdomen soft, non-tender, nondistended. MUSCULOSKELETAL: No cyanosis, or edema. BACK: Nontender without obvious deformity. No CVA tenderness. A/P Problem List: (1) Acute pulmonary edema ICD Code: J81.0 Status: Acute (2) Hypertensive urgency ICD Code: I16.0 Status: Acute Assessment and Plan 67-year-old male with Acute respiratory distress secondary to CHF exacerbation in presence of hypertensive urgency Continue with Lasix, strict I&Os Hypertensive urgency: Now resolved and continue with home medications Leukocytosis: Resolved ODELL - likely due to intravascular depletion - Avoid nephrotoxic agents - repeat lab studies show improvement 1.80 to 1.40 - Baseline around 1.10 - Will continue patient's home lisinopril dose for now but may need to discontinue his creatinine function worsens Hypernatremia: Resolved CAD and CHF - Continue home medications - Last echocardiogram 01/07/17 - mild LVH, severely reduced systolic function with EF 30-35% - Aspirin daily - resume use of LifeVest following discharge and keep scheduled follow-up appointment with cardiology Diabetes - Continue home glipizide, insulin sliding scale with fingerstick blood glucose monitoring Ongoing tobacco use with complaints of shortness of breath - Cessation counseling - Suspect underlying/undiagnosed COPD - Home oxygen walk test prior to discharge Dyslipidemia: Continue statin DVT prophylaxis SCD/JUNI hose Discharge Planning Discharged 01/18/17 Rahul Ashby MD Jan 17, 2017 14:29
[2017-01-17] MEDS: traZODone HCL 50 MG TAB PO SCH (21:14)
[2017-01-17] MEDS: INSULIN DETEMIR 100 UNITS/ML VIAL SQ SCH (21:18)
[2017-01-18] VITALS: BP 157/90; PULSE 81; RESP 18; TEMP 97.8; O2SAT 96
[2017-01-18 04:00] VITALS: BP 152/77; PULSE 84; RESP 16; TEMP 96; O2SAT 98
[2017-01-18] MEDS: ISOSORBIDE MONONITRATE 30 MG TAB PO SCH (05:31)
[2017-01-18] MEDS: INSULIN ASPART SUPPLEMENTAL SCALE SQ SCH ×2 (05:31→11:57)
[2017-01-18] MEDS: hydrALAZINE HCL 50 MG TAB PO SCH (05:31)
--- NOTE | 2017-01-18 08:09 | HHI.PR ---
Subjective Remarks Follow-up respiratory distress/hypertensive emergency 01/17/17-patient seen and examined, reports some improvement of shortness of breath. Currently afebrile and denies any chest pain 01/18/17-patient seen and examined, denies any shortness of breath. Stable. Ready for discharge home. Objective Vitals Vital Signs Date Time Temp Pulse Resp B/P Pulse Ox O2 Delivery O2 Flow Rate FiO2 01/18/17 04:00 96.0 84 16 152/77 98 01/18/17 00:00 97.8 81 18 157/90 96 01/17/17 21:00 77 01/17/17 20:49 96 Nasal Cannula 2.00 01/17/17 20:00 98.1 78 18 165/89 96 01/17/17 16:00 98.2 79 20 141/82 98 01/17/17 12:00 98.4 80 20 150/84 97 01/17/17 08:32 2.00 I/O 01/17/17 01/17/17 01/17/17 01/18/17 01/18/17 01/18/17 06:59 14:59 22:59 06:59 14:59 22:59 Intake Total 240 ml 720 ml 800 ml 580 ml Output Total 1800 ml 1200 ml 1750 ml 650 ml Balance -1560 ml -480 ml -950 ml -70 ml Intake Oral 240 ml 720 ml 800 ml 580 ml IV Total 0 ml Output Urine Total 1800 ml 1200 ml 1750 ml 650 ml # Voids 3 # Bowel Movements 1 0 0 Result Diagram: 01/17/17 0537 01/17/17 0537 Imaging Last Impressions Chest X-Ray 01/16/17 0406 Signed Impressions: Service Date/Time: Monday, January 16, 2017 04:19 - CONCLUSION: Stable cardiomegaly. Increased engorgement of the central pulmonary vascularity and new cephalization of flow and new acinar opacities in the right lower lung, suggestive of congestive failure. Genaro Boudreaux MD Objective Remarks GENERAL: NAD SKIN: Warm and dry. HEAD: Normocephalic. EYES: No scleral icterus. No injection or drainage. NECK: Supple, trachea midline. No JVD or lymphadenopathy. CARDIOVASCULAR: Regular rate and rhythm without murmurs, gallops, or rubs. RESPIRATORY: Breath sounds equal bilaterally. No accessory muscle use. GASTROINTESTINAL: Abdomen soft, non-tender, nondistended. MUSCULOSKELETAL: No cyanosis, or edema. BACK: Nontender without obvious deformity. No CVA tenderness. Procedures None A/P Problem List: (1) Acute pulmonary edema ICD Code: J81.0 Status: Acute (2) Hypertensive urgency ICD Code: I16.0 Status: Acute (3) Hypoxemia ICD Code: R09.02 Status: Acute Assessment and Plan 67-year-old male with Acute respiratory distress secondary to CHF exacerbation in presence of hypertensive urgency Improved and Continue with Lasix, strict I&Os Hypertensive urgency: Now resolved and continue with home medications Leukocytosis: Resolved ODELL - likely due to intravascular depletion - Avoid nephrotoxic agents - repeat lab studies show improvement 1.80 to 1.40 - Baseline around 1.10 - Continue lisinopril Hypernatremia: Resolved CAD and acute systolic CHF - Continue home medications - Last echocardiogram 01/07/17 - mild LVH, severely reduced systolic function with EF 30-35% - Aspirin daily - resume use of LifeVest following discharge and keep scheduled follow-up appointment with cardiology Diabetes - Continue home glipizide, insulin sliding scale with fingerstick blood glucose monitoring Ongoing tobacco use with complaints of shortness of breath - Cessation counseling - Suspect underlying/undiagnosed COPD - Home oxygen walk test prior to discharge Dyslipidemia: Continue statin Acute hypoxia/hypoxemia: Patient will be requiring home oxygen on discharge as other alternative measures were tried and were ineffective as patient failed respiratory walk test on 01/17/17 DVT prophylaxis SCD/JUNI [place] Discharge Planning Discharged 01/18/17 Rahul Ashby MD Jan 18, 2017 08:09
[2017-01-18] MEDS ORDERED: FURO40TA PO (08:11)
[2017-01-18] MEDS ORDERED: POTA-245 PO (08:12)
--- NOTE | 2017-01-18 08:13 | HHI.DS ---
Discharge Summary Admission Date Jan 16, 2017 at 05:23 Discharge Date: Jan 18, 2017 Admitting Diagnosis acute pulmonary edema (1) Acute pulmonary edema ICD Code: J81.0 (2) Hypertensive urgency ICD Code: I16.0 Procedures None Brief History - From Admission This is a 67-year-old male with past medical history of CAD with previous CABG, hypertension, dyslipidemia and diabetes. COPD with continued tobacco use and history of respiratory failure secondary to bilateral pneumonia last August and a recent admission earlier this month for flash pulmonary edema who presents to [facility] ED with complaints of severe shortness of breath 1 day. Patient states that symptoms began suddenly late last night with severe shortness of breath and associated diaphoresis. Patient denies any associated chest pain or palpitations. He denies any recent illness including fever chills nausea or vomiting. He denies any swelling in his legs or feet but states his abdomen appears to be getting larger. He denies any weight gain. Patient had similar circumstance for which he was admitted on January 06 for flash pulmonary edema. At that time, he was treated aggressively with Lasix and nitroglycerin and BiPAP with symptomatic resolution. However, the patient states that he was discharged from the hospital without a water pill. He also states that he was given a LifeVest and was told to follow-up in [address] Mckay but he has no contact information for that physician. He is not wearing the LifeVest because he states that it makes the shortness of breath worse. He does not use oxygen at home. In the ED, he was noted to be in acute respiratory distress and hypertensive urgency with a BP of 240/98. He was given Lasix and placed on BiPAP. He is much improved and is actually requesting if he can go home this afternoon. His O2 sats are 100%. Chest x-ray shows marked cardiomegaly, patchy areas of opacity in the right lower lung and increased engorgement central pulmonary vascularity suggestive of acute congestive heart failure. CBC/BMP: 01/17/17 0537 01/17/17 0537 Significant Findings Laboratory Tests Test 3/10/2301/16/17 01/16/17 01/16/17 04:10 04:45 05:29 14:30 White Blood Count 19.6 TH/MM3 (4.0-11.0) Mean Corpuscular Hemoglobin 31.9 % Concent (32.0-36.0) Monocytes (%) (Auto) 9.3 % (0.0-8.0) 9.1 % (0.0-8.0) Neutrophils # (Auto) 9.7 TH/MM3 (1.8-7.7) Lymphocytes # (Auto) 7.7 TH/MM3 (1.0-4.8) Monocytes # (Auto) 1.8 TH/MM3 (0-0.9) Monocytes % 11 % (0-8) Neutrophils # (Manual) 7.8 TH/MM3 (1.8-7.7) Atypical Lymphocytes 18 % (0-0) Sodium Level 149 MEQ/L (136-145) Chloride Level 109 MEQ/L (98-107) Blood Urea Nitrogen 25 MG/DL (7-18) 28 MG/DL (7-18) Creatinine 1.80 MG/DL 1.40 MG/DL (0.60-1.30) (0.60-1.30) Estimat Glomerular Filtration 38 ML/MIN (>89) 51 ML/MIN (>89) Rate Random Glucose 169 MG/DL 200 MG/DL (74-106) (74-106) Albumin 3.1 GM/DL (3.4-5.0) Blood Gas HCO3 28 mmol/L (22-26) Blood Gas Base Excess 3.1 mmol/L (-2-2) Arterial Blood pH 7.36 (7.380-7.420) Arterial Blood Partial 51 mmHG (38-42) Pressure CO2 Arterial Blood Partial 396 mmHG Pressure O2 (61-120) Urine Protein 100 mg/dL (NEG-TRACE) Red Blood Count 4.25 MIL/MM3 (4.50-5.90) Hemoglobin 12.1 GM/DL (13.0-17.0) Hematocrit 36.3 % (39.0-51.0) Calcium Level 8.3 MG/DL (8.5-10.1) Test 01/17/17 05:37 Mean Corpuscular Hemoglobin 31.9 % Concent (32.0-36.0) Neutrophils (%) (Auto) 73.8 % (16.0-70.0) Blood Urea Nitrogen 22 MG/DL (7-18) Estimat Glomerular Filtration 67 ML/MIN (>89) Rate Aspartate Amino Transf 12 U/L (15-37) (AST/SGOT) Albumin 2.9 GM/DL (3.4-5.0) Imaging Last Impressions Chest X-Ray 01/16/17 0406 Signed Impressions: Service Date/Time: Monday, January 16, 2017 04:19 - CONCLUSION: Stable cardiomegaly. Increased engorgement of the central pulmonary vascularity and new cephalization of flow and new acinar opacities in the right lower lung, suggestive of congestive failure. Genaro Boudreaux MD PE at Discharge GENERAL: NAD SKIN: Warm and dry. HEAD: Normocephalic. EYES: No scleral icterus. No injection or drainage. NECK: Supple, trachea midline. No JVD or lymphadenopathy. CARDIOVASCULAR: Regular rate and rhythm without murmurs, gallops, or rubs. RESPIRATORY: Breath sounds equal bilaterally. No accessory muscle use. GASTROINTESTINAL: Abdomen soft, non-tender, nondistended. MUSCULOSKELETAL: No cyanosis, or edema. BACK: Nontender without obvious deformity. No CVA tenderness. Hospital Course Acute respiratory distress secondary to CHF exacerbation in presence of hypertensive urgency Improved and Continue with Lasix, strict I&Os Hypertensive urgency: Now resolved and continue with home medications Leukocytosis: Resolved ODELL - likely due to intravascular depletion - Avoid nephrotoxic agents - repeat lab studies show improvement 1.80 to 1.40 - Baseline around 1.10 - Continue lisinopril Hypernatremia: Resolved CAD and acute systolic CHF - Continue home medications - Last echocardiogram 01/07/17 - mild LVH, severely reduced systolic function with EF 30-35% - Aspirin daily - resume use of LifeVest following discharge and keep scheduled follow-up appointment with cardiology Diabetes - Continue home glipizide, insulin sliding scale with fingerstick blood glucose monitoring Ongoing tobacco use with complaints of shortness of breath - Cessation counseling - Suspect underlying/undiagnosed COPD Acute hypoxia/hypoxemia: Patient will be requiring home oxygen on discharge as other alternative measures were tried and were ineffective as patient failed respiratory walk test on 01/17/17 Dyslipidemia: Continue statin DVT prophylaxis SCD/JUNI hose Pt Condition on Discharge: Stable Discharge Disposition: Discharge Home Discharge Time: <= 30 minutes Discharge Instructions DIET: Follow Instructions for: Diabetic Diet Activities you can perform: Regular-No Restrictions Follow up Referrals: PCP Follow-up - 1 Week New Medications: Oxygen tank (Oxygen tank) 1 Ea Tank 2 LITER .ROUTE CONTINUOUS Oxygen Concentrator Portable Gaseous 2 L/min via Nasal Cannula Continuous For 99 months HYPOXEMIA PREVENTION #2 CYLINDER Potassium Chloride Microencaps (Klor-Con M20) 20 Meq Tab 20 MEQ PO DAILY Electrolyte Replacement #30 Ref 0 TAB Furosemide (Furosemide) 40 Mg Tab 40 MG PO BID@,18 Prevent Heart Failure #60 TAB Continued Medications: Amlodipine (Norvasc) 10 Mg Tab 10 MG PO DAILY HTN Days [address] (Aspirin EC) 81 Mg Tabdr 81 MG PO DAILY CAD Days 30 TAB Atorvastatin (Atorvastatin) 80 Mg Tab 80 MG PO DAILY #30 Ref 0 TAB Clopidogrel (Clopidogrel) 75 Mg Tab 75 MG PO DAILY #30 Ref 0 TAB Gabapentin (Gabapentin) 100 Mg Cap 100 MG PO TID #90 Ref 0 CAP Glipizide (Glipizide) 10 Mg Tab 10 MG PO DAILY Take 30 minutes before a meal Blood Sugar Management #30 Ref 0 TAB Hydralazine (Hydralazine) 50 Mg Tab 100 MG PO Q8HR HTN Days 30 TAB Insulin Aspart Inj (Novolog Flexpen Inj) 300 Unit/3 Ml Pen 1 UNITS SQ Blood Sugar Management #1 Ref 0 PEN Insulin Detemir Inj (Levemir Inj) 1,000 unit/ 10 ML Vial 10 UNITS SQ HS Do not mix with any other Insulin. Blood Sugar Management Ref 0 VIAL Isosorbide Mononitrate (Imdur) 30 Mg Tab 30 MG PO DAILY@07 CAD Days 30 TAB Lansoprazole ODT (Prevacid Solutab ODT) 30 Mg Tab 30 MG PO DAILY GIPRO Days 30 TAB Lisinopril (Lisinopril) 10 Mg Tab 10 MG PO BID htn #60 TAB Metoprolol Succinate ER 24 HR (Metoprolol Succinate ER 24 HR) 25 Mg Tab 25 MG PO BID PRN HTN #30 Ref 0 TAB Quetiapine (Quetiapine) 25 Mg Tab 12.5 MG PO BID AGIT Days 30 TAB Sertraline (Sertraline) 100 Mg Tab 100 MG PO DAILY #30 Ref 0 TAB Trazodone (Trazodone) 50 Mg Tab 50 MG PO HS Control Depression #30 Ref 0 TAB Rahul Ashby MD 14, 2017 08:13
[2017-01-18 08:20] VITALS: BP 138/67; PULSE 86; RESP 18; TEMP 97.9; O2SAT 95
[2017-01-18] MEDS: GABAPENTIN 100 MG CAP PO SCH ×2 (08:26→11:57)
[2017-01-18] MEDS: CLOPIDOGREL 75 MG TAB PO SCH (08:26)
[2017-01-18] MEDS: glipiZIDE 10 MG TAB PO SCH (08:26)
[2017-01-18] MEDS: ASPIRIN EC 81 MG TABEC PO SCH (08:26)
[2017-01-18] MEDS: ATORVASTATIN 40 MG TAB PO SCH (08:26)
[2017-01-18] MEDS: SERTRALINE HCL 100 MG TAB PO SCH (08:27)
[2017-01-18] MEDS: QUEtiapine FUMARATE 25 MG TAB PO SCH (08:27)
[2017-01-18] MEDS: SODIUM CHLORIDE 0.9% FLUSH 5 ML FLUSH FLUSH SCH (08:27)
[2017-01-18] MEDS: LISINOPRIL 10 MG TAB PO SCH (08:27)
[2017-01-18] MEDS: FUROSEMIDE 40 MG TAB PO SCH (08:27)
[2017-01-18 08:50] VITALS: O2SAT 96
[2017-01-18] MEDS ORDERED: OXYGENTANK (10:51)
[2017-01-18 12:12] VITALS: BP 113/73; PULSE 93; RESP 18; TEMP 96.3; O2SAT 95
== END 2017-01-18 13:23 | disposition home or self-care (01) | DRG 292 ==
LOC: PHED 03:59 → PHEDA 05:23 → PHEDH 08:38 → PH3B 13:50
PROVIDERS: ADMIT Family Medicine; ATTEND Hospitalist
PROC: 5A09357 Assistance with Respiratory Ventilation, Less than 24 Consecutive Hours, Continuous Positive Airway Pressure (ICD-10-PCS; principal; 2017-01-16)
DX: I50.23 Acute on chronic systolic (congestive) heart failure (principal); N17.9 Acute kidney failure, unspecified; E87.0 Hyperosmolality and hypernatremia; J44.9 Chronic obstructive pulmonary disease, unspecified; F17.210 Nicotine dependence, cigarettes, uncomplicated; I16.0 Hypertensive urgency; R09.02 Hypoxemia; D72.829 Elevated white blood cell count, unspecified; E11.9 Type 2 diabetes mellitus without complications; Z79.84 Long term (current) use of oral hypoglycemic drugs; E78.5 Hyperlipidemia, unspecified; I25.10 Atherosclerotic heart disease of native coronary artery without angina pectoris; Z95.1 Presence of aortocoronary bypass graft; I10 Essential (primary) hypertension
CPT/HCPCS: 36600; 51702; 71010; 80048; 80053; 81001; 82550; 82805; 82948; 84484; 85007; 85025; 85027; 93005; 94002; 94620; 94664; 96374; 96375; J1815; J1940; J2270

== ENCOUNTER 2017-06-14 10:52 | Emergency (ER) | payer BC, MEDICARE ==
[~2017-06-14] VITALS: Ht 177.8 cm; Wt 101.0 kg
[~2017-06-14 10:52] MED LIST changes: +OXYGENTANK; +POTA-245 PO
[2017-06-14] MEDS ORDERED: HYDR-3801 PO (11:05)
[2017-06-14] MEDS ORDERED: ISOS10TA3 PO (11:05)
[2017-06-14 11:10] VITALS: BP 158/71; PULSE 69; RESP 18; TEMP 99; O2SAT 93
--- NOTE | 2017-06-14 11:23 | PD ---
HPI Chief Complaint: Pain: Acute or Chronic Time Seen by Provider: 11:17 Travel History International Travel<30 days: No Contact w/Intl Traveler<30days: No Traveled to known affect area: No History of Present Illness HPI 67-year-old male with history of diabetes, CAD status post CABG, presents to the ER today with several weeks' history of left knee pains and had been told by his physician to put ice packs on the knee, developed a left medial knee area ulcer with surrounding erythema measuring about 1 cm. He states this started on its own after the ice pack and he assumed that was secondary to ice pack related cold injury. He states that for several days now his left knee has been swelling up and hurting. He states that the swelling has gone down the entire left leg. He denies any fevers or any other issues. Modifying Factors: None Associated Signs & Symptoms: Left knee and leg pain and swelling Risk Factors: None PFSH Past Medical History Depression: Yes Cancer: No Cardiovascular Problems: Yes High Cholesterol: Yes Chest Pain: No Congestive Heart Failure: Yes COPD: No Diabetes: Yes Patient Takes Glucophage: No Diminished Hearing: No Endocrine: Yes Genitourinary: No Hypertension: Yes Immune Disorder: No Musculoskeletal: No Neurologic: No Psychiatric: No Reproductive: No Respiratory: Yes Myocardial Infarction: Yes Pneumonia: Yes Tetanus Vaccination: < 5 Years Influenza Vaccination: Yes Past Surgical History Cardiac Surgery: Yes (Carotid endarterectomy) Coronary Artery Bypass Graft: Yes Eye Surgery: Yes (Cataracts ) Oral Surgery: Yes ([place] teeth) Tonsillectomy: Yes Social History Alcohol Use: No Tobacco Use: No (1 PPD) Substance Use: No Allergies-Medications (Allergen,Severity, Reaction): Coded Allergies: No Known Allergies (Unverified , 06/14/17) Reported Meds & Prescriptions Reported Meds & Active Scripts Active Klor-Con M20 (Potassium Chloride Microencaps) 20 Meq Tab 20 Meq PO DAILY Lisinopril 10 Mg Tab 10 Mg PO BID Furosemide 40 Mg Tab 40 Mg PO BID@ Quetiapine (Quetiapine Fumarate) 25 Mg Tab 12.5 Mg PO BID 30 Days Prevacid Solutab ODT (Lansoprazole) 30 Mg Tab 30 Mg PO DAILY 30 Days Aspirin EC (Aspirin) 81 Mg Tabdr 81 Mg PO DAILY 30 Days Norvasc (Amlodipine Besylate) 10 Mg Tab 10 Mg PO DAILY 30 Days Reported Isosorbide Mononitrate 10 Mg Tab 30 Mg PO DAILY Take 2 doses 7 hours apart. Hydralazine (Hydralazine HCl) 100 Mg Tab 50 Mg PO TID Take with meals Novolog Flexpen Inj (Insulin Aspart) 300 Unit/3 Ml Pen 1 Units SQ DIRECTED Levemir Inj (Insulin Detemir) 1,000 unit/ 10 ML Vial 30 Units SQ HS Do not mix with any other Insulin. Trazodone (Trazodone HCl) 50 Mg Tab 50 Mg PO HS Glipizide 10 Mg Tab 10 Mg PO DAILY Take 30 minutes before a meal Metoprolol Succinate ER 24 HR (Metoprolol Succinate) 25 Mg Tab 25 Mg PO BID PRN Clopidogrel (Clopidogrel Bisulfate) 75 Mg Tab 75 Mg PO DAILY Gabapentin 100 Mg Cap 100 Mg PO TID Atorvastatin (Atorvastatin Calcium) 80 Mg Tab 80 Mg PO DAILY Review of Systems Except as stated in HPI: all other systems reviewed are Neg Physical Exam Narrative GENERAL: Well-developed elderly white male patient currently in mild distress. Awake and oriented 3. SKIN: Focused skin assessment warm/dry. HEAD: Atraumatic. Normocephalic. EYES: Pupils equal and round. No scleral icterus. No injection or drainage. ENT: No nasal bleeding or discharge. Mucous membranes pink and moist. NECK: Trachea midline. No JVD. CARDIOVASCULAR: Regular rate and rhythm. No murmur appreciated. RESPIRATORY: No accessory muscle use. Clear to auscultation. Breath sounds equal bilaterally. GASTROINTESTINAL: Abdomen soft, non-tender, nondistended. Hepatic and splenic margins not palpable. MUSCULOSKELETAL: No obvious deformities. No clubbing. No cyanosis. No edema. EXTREMITIES: No clubbing, cyanosis. There is notable left knee joint effusion and tenderness to palpation of the left knee joint with notable edema at the left leg. In the distal medial femur area, there is a 1 cm ulceration with scabbing and surrounding erythema. NEUROLOGICAL: Awake and alert. No obvious cranial nerve deficits. Motor grossly within normal limits. Normal speech. PSYCHIATRIC: Appropriate mood and affect; insight and judgment normal. Data Data Last Documented VS Vital Signs Date Time Temp Pulse Resp B/P Pulse Ox O2 Delivery O2 Flow Rate FiO2 06/14/17 13:10 69 18 138/63 92 Nasal Cannula 2 06/14/17 11:10 99.0 Orders Complete Blood Count With Diff (06/14/17 11:17) Comprehensive Metabolic Panel (06/14/17 11:17) Prothrombin Time / Inr (Pt) (06/14/17 11:17) Act Partial Throm Time (Ptt) (06/14/17 11:17) Lactic Acid Sepsis Protocol (06/14/17 11:17) Blood Culture (06/14/17 11:17) Blood Glucose (06/14/17 11:17) Ecg Monitoring (06/14/17 11:17) Iv Access Insert/Monitor (06/14/17 11:17) Oximetry (06/14/17 11:17) Oxygen Administration (06/14/17 11:17) Hydromorphone Pf Inj (Dilaudid Pf Inj) (06/14/17 11:30) Ondansetron Inj (Zofran Inj) (06/14/17 11:30) Knee, Complete (4vws) (06/14/17 11:17) Us Leg Venous Doppler (06/14/17 11:17) C-Reactive Protein (Crp) (06/14/17 11:20) Westergren Sedimentation Rate (06/14/17 11:20) Lidocaine 1% Inj (50 Ml) (Xylocaine 1% I (06/14/17 12:45) Fluid Culture And Gram Stain (06/14/17 12:42) Synovial Fluid Crystals (06/14/17 12:42) Synovial Fluid Glucose (06/14/17 12:42) Synovial Fluid Total Protein (06/14/17 12:42) Synovial Fl Cell Count + Diff (06/14/17 12:42) Labs Laboratory Tests Test 06/14/17 06/14/17 11:40 13:15 White Blood Count 9.1 TH/MM3 Red Blood Count 4.82 MIL/MM3 Hemoglobin 14.0 GM/DL Hematocrit 41.4 % Mean Corpuscular Volume 85.8 FL Mean Corpuscular Hemoglobin 29.0 PG Mean Corpuscular Hemoglobin 33.8 % Concent Red Cell Distribution Width 14.7 % Platelet Count 156 TH/MM3 Mean Platelet Volume 7.9 FL Neutrophils (%) (Auto) 64.8 % Lymphocytes (%) (Auto) 24.7 % Monocytes (%) (Auto) 9.2 % Eosinophils (%) (Auto) 0.6 % Basophils (%) (Auto) 0.7 % Neutrophils # (Auto) 5.9 TH/MM3 Lymphocytes # (Auto) 2.2 TH/MM3 Monocytes # (Auto) 0.8 TH/MM3 Eosinophils # (Auto) 0.1 TH/MM3 Basophils # (Auto) 0.1 TH/MM3 CBC Comment DIFF FINAL Differential Comment Erythrocyte Sedimentation Rate 17 mm/hr Prothrombin Time 10.7 SEC Prothromb Time International 1.0 RATIO Ratio Activated Partial 27.3 SEC Thromboplast Time Sodium Level 138 MEQ/L Potassium Level 4.0 MEQ/L Chloride Level 104 MEQ/L Carbon Dioxide Level 25.5 MEQ/L Anion Gap 9 MEQ/L Blood Urea Nitrogen 25 MG/DL Creatinine 1.50 MG/DL Estimat Glomerular Filtration 47 ML/MIN Rate Random Glucose 172 MG/DL Lactic Acid Level 0.8 mmol/L Calcium Level 8.3 MG/DL Total Bilirubin 0.3 MG/DL Aspartate Amino Transf 16 U/L (AST/SGOT) Alanine Aminotransferase 27 U/L (ALT/SGPT) Alkaline Phosphatase 130 U/L C-Reactive Protein 2.73 MG/DL Total Protein 7.2 GM/DL Albumin 3.4 GM/DL Synovial Fluid Color RED Synovial Fluid Appearance MARKED Synovial Fluid WBC 3700 /MM3 Synovial Fluid RBC 4989425 /MM3 Synovial Fluid Neutrophils 65 % Synovial Fluid Lymphocytes 29 % Synovial Fluid Monocytes 5 % Synovial Fluid Crystals NONE MDM Medical Decision Making Medical Screen Exam Complete: Yes Emergency Medical Condition: Yes Medical Record Reviewed: Yes Interpretation(s) Laboratory Tests Test 06/14/17 11:40 Monocytes (%) (Auto) 9.2 % (0.0-8.0) Blood Urea Nitrogen 25 MG/DL (7-18) Creatinine 1.50 MG/DL (0.60-1.30) Estimat Glomerular Filtration 47 ML/MIN (>89) Rate Random Glucose 172 MG/DL (74-106) Calcium Level 8.3 MG/DL (8.5-10.1) Alkaline Phosphatase 130 U/L (45-117) Last 24 hours Impressions Lower Extremity Ultrasound 06/14/171116 Signed Impressions: Service Date/Time: Wednesday, June 14, 2017 12:08 - CONCLUSION: No evidence of DVT. Tavo Cash MD Knee X-Ray 06/14/17 111 Signed Impressions: Service Date/Time: Wednesday, June 14, 2017 11:20 - CONCLUSION: Normal examination for a patient of this age. Tavo Cash MD Differential Diagnosis Left knee pain and leg swellingcellulitis versus gouty arthritis versus osteoarthritis versus septic arthritis versus DVT Narrative Course X-rays did not show any signs of acute bony processes and ultrasound did not show any DVT. Lab work did not show significant leukocytosis. A knee tap was done revealing bloody fluid. This appears to be a hemarthrosis. Considering the amount of RBCs, the elevated WBC counts are not likely to be secondary to septic arthritis. Patient does not have any signs of significant leukocytosis. And his skin ulcer did not occur until he put ice on the area and does not look significantly infected at this point. My plan would be to release him with follow-up to primary care physician tomorrow. Patient states that he does not want to wait for the rest of the synovial fluid information to return. At this point, he should return for any worsening in pain or new symptoms. He should avoid weightbearing on that left knee. José Luis bandage is left on for compression. The plan was discussed with him and he states understanding. Patient states he does not need crutches, has crutches at home. Procedures Procedure Narrative Knee arthrocentesis: The knee was placed in a flexed position with towels underneath, the medial knee was cleaned with iodine prep, and 1 cc of 1% lidocaine local was placed in the area. 18-gauge needle was used to access the joint, joint fluid fairly bloody. Area was then covered with gauze and José Luis wrapped. Patient tolerated procedures well. Diagnosis Primary Impression: Hemarthrosis of knee Med/Other Pt SpecificInfo: Prescription(s) given Scripts Hydrocodone-Acetaminophen (Lortab)5-325 Mg Tab1-2 Tab PO Q6H PRN (PAIN) #15 TAB Ref 0 Prov:Benny Allan MD 06/14/17 Disposition: 01 DISCHARGE HOME Condition: Stable Benny Allan MD Jun 14, 2017 11:23
[2017-06-14] MEDS ORDERED: HYDROmorphone HCL PF 1 MG/ML VIAL IV ONE (11:30)
[2017-06-14] MEDS ORDERED: ONDANSETRON HCL 4 MG/2 ML VIAL IV ONE (11:30)
[2017-06-14 11:52] LABS: AUTOMATED NEUTROPHIL # 5.9 TH/MM3 (1.8-7.7); BASOPHIL # 0.1 TH/MM3 (0-0.2); BASOPHIL % 0.7 % (0.0-2.0); EOSINOPHIL # 0.1 TH/MM3 (0-0.4); EOSINOPHIL % 0.6 % (0.0-4.0); HEMATOCRIT 41.4 % (39.0-51.0); HEMO FLAGS DIFF FINAL; LYMPH % 24.7 % (9.0-44.0); LYMPHOCYTE # 2.2 TH/MM3 (1.0-4.8); MEAN CELL VOLUME 85.8 FL (80.0-100.0); MEAN CORPUSCULAR HGB CONC 33.8 % (32.0-36.0); MONO % 9.2 % (0.0-8.0); NEUT % 64.8 % (16.0-70.0); PLATELET COUNT 156 TH/MM3 (150-450); RED BLOOD COUNT 4.82 MIL/MM3 (4.50-5.90); RED CELL DISTRIBUTION WIDTH 14.7 % (11.6-17.2); WHITE BLOOD COUNT 9.1 TH/MM3 (4.0-11.0)
--- NOTE | 2017-06-14 11:54 | RADRPT ---
EXAM DATE/TIME: 06/14/2017 11:20 [facility] COMPARISON: No previous studies available for comparison. INDICATIONS : Patient states no known injury. Entire knee has been hurting for a week and lateral side is very sore . MEDICAL HISTORY : Hypertension. Diabetes mellitus type II. SURGICAL HISTORY : Cardiac bypass x 4 ENCOUNTER: Initial ACUITY: 1 week PAIN SCORE: 7/10 LOCATION: Left Knee, lateral side. FINDINGS: Four view examination of the left knee demonstrates no evidence of fracture or dislocation. Bony min eralization is normal. The articular surfaces are intact. The suprapatellar soft tissues have a nor mal configuration. No evidence of a joint effusion. Small surgical clip in the soft tissues along the medial aspect of the knee. CONCLUSION: Normal examination for a patient of this age. Tavo Cash MD on June 14, 2017 at 11:52 Board Certified Radiologist. This report was verified electronically.
[2017-06-14 11:59] LABS: CHLORIDE 104 MEQ/L (98-107); SODIUM (NA) 138 MEQ/L (136-145)
[2017-06-14 12:03] LABS: ANION GAP 9 MEQ/L (5-15); BICARBONATE 25.5 MEQ/L (21.0-32.0); BLOOD UREA NITROGEN 25 MG/DL (7-18)
[2017-06-14 12:05] LABS: APTT (PATIENT) 27.3 SEC (24.3-30.1); PROTHROMBIN TIME - PATIENT 10.7 SEC (9.8-11.6)
[2017-06-14 12:06] LABS: ALT (GPT) 27 U/L (12-78); AST (GOT) 16 U/L (15-37); GLOMERULAR FILTRATION RATE 47 ML/MIN (>89)
[2017-06-14 12:08] LABS: TOTAL BILIRUBIN ADULT 0.3 MG/DL (0.2-1.0)
[2017-06-14 12:09] LABS: ALKALINE PHOSPHATASE 130 U/L (45-117)
--- NOTE | 2017-06-14 12:28 | RADRPT ---
EXAM DATE/TIME: 06/14/2017 12:08 [facility] COMPARISON: No previous studies available for comparison. INDICATIONS : Left leg swelling and pain. MEDICAL HISTORY : Myocardial infarction. Hypertension. Hypercholesterolemia. CAD. Diabetes. Anticoagulant therapy, P lavix. SURGICAL HISTORY : CABG Carotid endarterectomy. ENCOUNTER: Initial ACUITY: 1 week PAIN SCORE: 10/10 LOCATION: Left leg. TECHNIQUE: Venous ultrasound of the leg was performed from the inguinal ligament to the proximal calf. Real-tracy e, color Doppler and spectral tracing, compression and augmentation techniques were used. FINDINGS: There is normal compressibility of the deep venous system from the inguinal region to the proximal ca lf. No echogenic clot is seen in the lumen of the common femoral, femoral, popliteal, and posterior tibial veins. There is a normal response of the venous system to proximal and distal augmentation an d respiration. CONCLUSION: No evidence of DVT. Tavo Cash MD on June 14, 2017 at 12:26 Board Certified Radiologist. This report was verified electronically.
[2017-06-14] MEDS ORDERED: LIDOCAINE HCL 1% 50 ML VIAL INFIL ONE (12:45)
[2017-06-14 13:10] VITALS: BP 138/63; PULSE 69; RESP 18; O2SAT 92; O2SAT 97
[2017-06-14 14:25] LABS: WBC, SYNOVIAL FLUID 3700 /MM3 (0-200)
[2017-06-14] MEDS ORDERED: HYDR-3533 PO (15:00)
[2017-06-14 15:40] VITALS: BP 167/71; PULSE 64; RESP 18; O2SAT 92
[2017-06-17 23:52] LABS: TOTAL PROTEIN, SYNOVIAL FLUID 2.6 g/dL (1.0-3.0)
== END 2017-06-14 15:45 | disposition home or self-care (01) ==
LOC: PHED 10:52
DX: M25.062 Hemarthrosis, left knee (principal); E78.00 Pure hypercholesterolemia, unspecified; I50.9 Heart failure, unspecified; I11.0 Hypertensive heart disease with heart failure; E11.9 Type 2 diabetes mellitus without complications; I25.2 Old myocardial infarction; R60.0 Localized edema
CPT/HCPCS: 20610; 73564; 80053; 82945; 83605; 84157; 85025; 85610; 85652; 85730; 86140; 87040; 87070; 87205; 89051; 89060; 93971; 96374; 96375; 99285; J1170; J2405